=== PATIENT | female | born 1935 | race Caucasian/White ===

== ENCOUNTER 2016-05-14 14:26 | Observation (INO) ==
--- NOTE | 2016-05-14 15:37 | Emergency Department Note ---
Disposition Clinical Impression: Transient ischemic attack (TIA) Qualifiers: Transient cerebral ischemia type: unspecified Qualified Code(s): G45.9 - Transient cerebral ischemic attack, unspecified Disposition: Admitted As Inpatient Condition: Good Time of Disposition: 16:15 Arrhythmia/Palpitations HPI - General Chief Complaint: ED Arrhythmia/Palpitations Stated Complaint: arrhythmia Time Seen by Provider: 05/14/16 14:30 Source: patient, EMS Limitations: no limitations Nursing Notes Reviewed: Yes Vital Signs Reviewed: Yes - History of Present Illness HPI Narrative: Mrs. Christopher, a 80-year-old female, presents from Dr. Jalloh' office via EMS with reported new onset arrhythmia with ST changes. At 10:30 this morning. Patient experienced right-sided upper and lower extremity weakness and numbness. She went to her primary care physician's office without appointment. He performed an EKG which which showed bigeminy. Patient has no history of bigeminy. Patient's only complaint at this time is generalized weakness. - Related Data Home Medications Medication Instructions Recorded Confirmed Ascorbate Calcium [Vitamin C] 500 mg PO DAILY 05/14/16 05/14/16 Aspirin 325 mg PO DAILY 05/14/16 05/14/16 Atorvastatin [Lipitor] 40 mg PO HS 05/14/16 05/14/16 Cholecalciferol (D-3) [Vitamin D] 1,000 unit PO DAILY 05/14/16 05/14/16 Lisinopril [Zestril] 10 mg PO DAILY 05/14/16 05/14/16 Metoprolol Succinate 100 mg PO DAILY 05/14/16 05/14/16 Allergies Allergy/AdvReac Type Severity Reaction Status Date / Time No Known Allergies Allergy Verified 05/14/16 14:58 All systems ED: reviewed and negative except as stated. Constitutional: Reports: weakness. Denies: fever, chills Eyes: Denies: vision change ENT ED: Denies: congestion Cardiovascular: Denies: chest pain, palpitations, dyspnea on exertion, syncope Respiratory: Denies: cough, dyspnea, wheezes, hemoptysis Gastrointestinal: Denies: abdominal pain, nausea, vomiting, diarrhea, constipation, hematemesis, melena, hematochezia Genitourinary: Denies: urgency, dysuria, frequency Musculoskeletal: Denies: back pain, neck pain Integumentary: Denies: rash Neurological: Reports: weakness, numbness. Denies: headache, confusion, abnormal gait, vertigo Past Medical History - Past Medical History Medical history: Reports: coronary artery disease, hyperlipidemia, hypertension , myocardial infarction, other Psychiatric history: Reports: no psych history - Social History Smoking Status: Never smoker Smokeless Tobacco Status: No Alcohol use: Reports: none Drug use: Reports: none Physical Exam General: Patient is alert, oriented, and in no acute distress. HEENT: No facial asymmetry. Head is normocephalic and atraumatic. PERRLA, EOMI. trachea midline. Oral mucosa moist. Cardiovascular: Heart bradycardic rate and irregular rhythm without clicks, rubs , gallops, or murmurs. No JVD. PMI nondisplaced. No pedal edema. Bilateral radial, dorsalis pedis, posterior tibial pulses 2+. Respiratory: Symmetric chest rise with good respiratory effort. Bilateral breath sounds are clear without wheezing, crackles, or rhonchi. Abdomen: Bowel sounds present normoactive x-4 quadrants. Abdomen is soft, nondistended, and nontender. No organomegaly noted. Musculoskeletal: Muscle strength 5/5 and symmetric bilaterally in upper and lower extremities. DTRs 2/4 and symmetric bilaterally in upper and lower extremities. Neuro: Cranial nerves II through XII without deficit. Sensation light touch intact. Negative pronator drift. Psych: Patient's affect is appropriate for situation. - General Limitations: no limitations General appearance: alert, in no apparent distress Course Course Narrative: Initial concern is patient had transient neurologic symptoms with the addition of a cardiac arrhythmia of unknown duration. It is possible she could have formed a clot which are arrhythmia and ejected it into the arterial side. Patient is neurologically asymptomatic at this time. EKG interpreted as bigeminy however, when speaking with patient at bedside, she will spontaneously convert to normal sinus then slide back in a bigeminy. Unknown duration of this rhythm. Patient's lab work is unremarkable. Patient imaging does not show any acute abnormalities. Head CT 05/14/16 14:50 IMPRESSION: No acute intracranial abnormality. D/ / Davi Gore MD / Davi Gore MD Interpreting Provider: Davi Gore MD After speaking with the patient and her family at bedside, they agreed to admission for TIA workup as well as continued cardiac evaluation. Spoke with Dr. Alonzo who agrees to accept the patient. Vital Signs Temperature 98.4 F 05/14/16 14:27 Pulse Rate 82 05/14/16 14:27 Respiratory Rate 18 05/14/16 14:27 Blood Pressure 169/86 05/14/16 14:27 O2 Sat by Pulse Oximetry 97 05/14/16 14:27 Temperature 98.4 F 05/14/16 14:27 Pulse Rate 85 05/14/16 17:13 Respiratory Rate 16 05/14/16 17:19 Blood Pressure 174/86 05/14/16 17:19 O2 Sat by Pulse Oximetry 95 05/14/16 17:13 Oxygen Delivery Oxygen Delivery Room Air Arrhythmia/Palpitations - Medical Records Medical records reviewed: Yes I reviewed the patient's medical records. Patient has no medical record cardiac and neurologic workup on file. Head CT 05/14/16 14:50 IMPRESSION: No acute intracranial abnormality. D/ / Davi Gore MD / Davi Gore MD Interpreting Provider: Davi Gore MD - Lab Data Lab results reviewed: Yes I reviewed the patient's lab results. Result diagrams: 05/14/16 15:35 05/14/16 15:35 Lab Results 05/14/16 05/14/16 05/14/16 Range/Units 15:35 15:35 15:35 WBC 7.7 (4.3-11.1) K/mcL RBC 4.67 (3.82-4.97) M/mcL Hgb 14.6 (11.5-15.4) g/dL Hct 43.5 (35.3-44.9) % MCV 93.1 (83.0-100.0) fL MCH 31.3 (28.0-33.3) pg MCHC 33.6 (31.6-35.5) g/dL RDW 13.2 (11.5-14.5) % Plt Count 212 (140-400) K/mcL MPV 11.1 (9.4-12.4) fL Immature Gran % 0.3 (0-4) % Seg Neutrophils % 60.8 % Lymphocytes % 26.9 % Monocytes % 8.1 % Eosinophils % 3.0 % Basophils % 0.9 % Neutrophils # 4.7 (1.6-8.9) K/mcL Lymphocytes # 2.1 (0.6-4.6) K/mcL Monocytes # 0.6 (0.0-1.3) K/mcL Eosinophils # 0.2 (0.0-0.6) K/mcL Basophils # 0.1 (0.0-0.2) K/mcL PT 12.9 H (9.4-12.1) Seconds INR 1.2 Sodium 142 (136-145) mEq/L Potassium 3.9 (3.5-4.5) mEq/L Chloride 106 (98-109) mEq/L Carbon Dioxide 27 (19-29) mEq/L BUN 27 H (7-20) mg/dL Creatinine 0.84 (0.57-1.11) mg/dL Est GFR ( Amer) > 60 (> 60) Est GFR (Non-Af Amer) > 60 (> 60) BUN/Creatinine Ratio 32 H (6-26) Glucose 90 (70-99) mg/dL Calculated Osmolality 299 (280-300) Calcium 9.5 (8.6-10.8) mg/dL Troponin I (0-0.03) ng/mL 05/14/16 Range/Units 15:35 WBC (4.3-11.1) K/mcL RBC (3.82-4.97) M/mcL Hgb (11.5-15.4) g/dL Hct (35.3-44.9) % MCV (83.0-100.0) fL MCH (28.0-33.3) pg MCHC (31.6-35.5) g/dL RDW (11.5-14.5) % Plt Count (140-400) K/mcL MPV (9.4-12.4) fL Immature Gran % (0-4) % Seg Neutrophils % % Lymphocytes % % Monocytes % % Eosinophils % % Basophils % % Neutrophils # (1.6-8.9) K/mcL Lymphocytes # (0.6-4.6) K/mcL Monocytes # (0.0-1.3) K/mcL Eosinophils # (0.0-0.6) K/mcL Basophils # (0.0-0.2) K/mcL PT (9.4-12.1) Seconds INR Sodium (136-145) mEq/L Potassium (3.5-4.5) mEq/L Chloride (98-109) mEq/L Carbon Dioxide (19-29) mEq/L BUN (7-20) mg/dL Creatinine (0.57-1.11) mg/dL Est GFR ( Amer) (> 60) Est GFR (Non-Af Amer) (> 60) BUN/Creatinine Ratio (6-26) Glucose (70-99) mg/dL Calculated Osmolality (280-300) Calcium (8.6-10.8) mg/dL Troponin I 0.01 (0-0.03) ng/mL - Radiology Data Radiology results reviewed: Yes I reviewed the patient's radiology results. Head CT 05/14/16 14:50 IMPRESSION: No acute intracranial abnormality. D/ / Davi Gore MD / Davi Gore MD Interpreting Provider: Davi Gore MD - EKG Data EKG attestation: Yes I reviewed and interpreted this EKG. EKG results narrative: EKG dated 05/14/16 at 14:36 interpreted as premature atrial beats presenting as bigeminy. Nonspecific ST-T changes however no evidence of ST elevation. Compared to previous dated 05/14/2016 at 13:41 all showing bigeminy. Compared to previous dated 10/15/1997 showing sinus rhythm. In comparison, the bigeminy is new. Attestation Statement - Attestation Attestation: Dr. Starr note: Is not seen in conjunction with resident Dr Alonso; please see his charting for complete documentation. I agree with the patient's treatment and disposition and treatment [id number] time with the patient. TRansient rt sided weakness today; no focal deficits on re examination @ this time; bigimeny noted on ekg and has been going on for ? amt of time; intermittent nsr also noted in ER; very pleasant/comfortable in ER w/o acute findings; NIH Stroke Scale - Level of Consciousness LOC: Alert - LOC Questions LOC Questions: Answers both correctly - LOC Commands LOC Commands: Performs both correctly - Best Gaze Best Gaze: Normal - Visual Visual: No visual loss - Facial Palsy Facial Palsy: Normal - Motor Arms Motor Arm-Left: No drift for 10 seconds Motor Arm-Right: No drift for 10 seconds - Motor Legs Motor Leg-Left: No drift for 5 seconds Motor Leg-Right: No drift for 5 seconds - Limb Ataxia Limb Ataxia: Normal, No Ataxia - Sensory Sensory: Normal - Best Language Best Language: No aphasia - Dysarthria Dysarthria: Normal - Extinction and Inattention Extinction and Inattention: Normal - NIHSS Total Score NIHSS Total Score: 0 TPA Checklist - Source Information Source: Patient - Eligibilty for IV tPA 1. LKW equal to or less than 4.5 hours be before treatment: No 2. Clinical diagnosis of ischemic stroke causing deficit: No 3. Age 18 years or older: Yes
[2016-05-14 15:44] LABS: Basophils # 0.1 K/mcL (0.0-0.2); Basophils % 0.9 %; Eosinophils # 0.2 K/mcL (0.0-0.6); Hematocrit 43.5 % (35.3-44.9); Hemoglobin 14.6 g/dL (11.5-15.4); Immature Granulocytes % 0.3 % (0-4); Lymphocytes # 2.1 K/mcL (0.6-4.6); Lymphocytes % 26.9 %; Mean Corpuscular HGB Conc 33.6 g/dL (31.6-35.5); Mean Corpuscular Hemoglobin 31.3 pg (28.0-33.3); Mean Corpuscular Volume 93.1 fL (83.0-100.0); Mean Platelet Volume 11.1 fL (9.4-12.4); Monocytes # 0.6 K/mcL (0.0-1.3); Monocytes % 8.1 %; Neutrophils # 4.7 K/mcL (1.6-8.9); Platelet Count 212 K/mcL (140-400); Red Blood Count 4.67 M/mcL (3.82-4.97); Red Cell Distribution Width 13.2 % (11.5-14.5); Segmented Neutrophils % 60.8 %
[2016-05-14 15:50] LABS: INR 1.2; Prothrombin Time 12.9 Seconds (9.4-12.1)
[2016-05-14 15:55] LABS: BUN/Creatinine Ratio 32 (6-26); Blood Urea Nitrogen 27 mg/dL (7-20); Calcium 9.5 mg/dL (8.6-10.8); Carbon Dioxide 27 mEq/L (19-29); Chloride 106 mEq/L (98-109); Glucose 90 mg/dL (70-99); Osmolality,Calculated 299 (280-300); Potassium 3.9 mEq/L (3.5-4.5); Sodium 142 mEq/L (136-145); eGFR For African Americans > 60 (> 60); eGFR For Non-African Americans > 60 (> 60)
[2016-05-14] MEDS ORDERED: Acetaminophen 325 MG TABLET PO PRN (17:29)
[2016-05-14] MEDS ORDERED: Ondansetron ODT 4 MG TAB.RAPDIS SL PRN (17:29)
[2016-05-14] MEDS ORDERED: Naloxone 0.4 MG/ML INJ IVP PRN (17:29)
[2016-05-14] MEDS ORDERED: Ibuprofen 400 MG TABLET PO PRN (17:29)
[2016-05-14] MEDS ORDERED: *HR* Morphine 2 MG/ML SYRINGE IVP PRN (17:29)
--- NOTE | 2016-05-14 17:59 | Internal Med History&Physical ---
Date of Encounter: 05/14/16 Time of Encounter: 17:52 Assessment and Plan (1) Transient ischemic attack (TIA) Current visit: Yes Status: Acute Obtain TIA work up: Brain MRI, ECHO, and Carotid Doppler. Patient already on ASA and Lipitor at home, continue home meds. BP ranges from 156-169/86-111. Hold off on home BP meds till Brain MRI rules out acute infarct. Hydralazine 10mg IVP ordered prn SBP/DBP. >180/110. Rpt EKG a.m, keep on telemetry Neuro consult if any abnormality. Qualifiers: Transient cerebral ischemia type: unspecified Qualified Code(s): G45.9 - Transient cerebral ischemic attack, unspecified (2) Bigeminy Current visit: Yes Status: Acute (3) HTN (hypertension) Current visit: Yes Status: Chronic Qualifiers: Hypertension type: essential hypertension Qualified Code(s): I10 - Essential (primary) hypertension (4) CAD (coronary artery disease) Current visit: Yes Status: Chronic Qualifiers: Coronary Disease-Associated Artery/Lesion type: [place] artery [place] vs. transplanted heart: [place] heart Associated angina: without angina Qualified Code(s): I25.10 - Atherosclerotic heart disease of [place] coronary artery without angina pectoris (5) HLD (hyperlipidemia) Current visit: Yes Status: Chronic Qualifiers: Hyperlipidemia type: unspecified Qualified Code(s): E78.5 - Hyperlipidemia , unspecified Internal Medicine - H&P: HPI Chief complaint: RUE and RLE weakness Admitted From: Home Plans for Post Hospital Care: Home History of present illness: 80 Y/O F with PMH of CAD/[place], HLD, HTN Presented as a referral from PCPs office for evaluation for abnormal EKG and RUE and RLE weakness. She reports being in her usual state of health till 0900 today when she felt weak on her upper and lower extremity. She denies numbness, speech problems or facial assymetry at that time. She presented to her PCP who referred her to the ER by squad due to an abnormal EKG Patient denies chest pain, palpitations, syncope, fainting episodes, shortness of breath , orthopnea, PND, She denies or abdominal symptoms At time of review, she is completely asymptomatic At baseline, patient is functional and able to care for her horses and dogs at home. PMH: HTN, HLD, CAD with hx of TN several years ago >20 years ago, she is not sure if she had stents placed or not. She is a never-smoker. Past Med Surg Social Fam HX - Past Medical History Medical history: coronary artery disease, hyperlipidemia, hypertension, myocardial infarction, other Psychiatric history: no psych history - Social History Smoking Status: Never smoker Smokeless Tobacco Status: No Alcohol use: none Drug use: none Internal Medicine - H&P: Meds Ascorbate Calcium [Vitamin C] 500 mg PO DAILY 05/14/16 [History] Aspirin 325 mg PO DAILY 05/14/16 [History] Atorvastatin [Lipitor] 40 mg PO HS 05/14/16 [History] Cholecalciferol (D-3) [Vitamin D] 1,000 unit PO DAILY 05/14/16 [History] Lisinopril [Zestril] 10 mg PO DAILY 05/14/16 [History] Metoprolol Succinate 100 mg PO DAILY 05/14/16 [History] Allergies No Known Allergies Allergy (Verified 05/14/16 14:58) All Systems PM: A 10-system review of systems was performed and is negative for pertinent findings except as documented above in the HPI. - Constitutional Constitutional: no chills, no fever(s), no night sweats - EENT Eyes: no change in vision, no discharge, no pain, no photophobia Ears: no ear discharge, no ear pain, no tinnitus Nose, mouth and throat: no dysphagia, no nasal discharge, no neck pain, no sore throat - Cardiovascular Cardiovascular ROS IM: no chest pain, no diaphoresis, no dyspnea, no lightheadedness, no palpitations, no syncope - Respiratory Respiratory: no cough, no dyspnea, no wheezing, no excessive phlegm production - Gastrointestinal Gastrointestinal: no abdominal pain, no diarrhea, no hematemesis, no hematochezia, no melena, no nausea, no vomiting - Genitourinary Genitourinary: no change in urinary stream, no dysuria, no flank pain, no hematuria - Integumentary Additional comments: Multiple moles - Neurological Neurological ROS: as per HPI - Psychiatric Psychiatric: no depression - Hematologic/Lymphatic Hematologic/Lymphatic: no easy bruising - Constitutional Vitals: Temp Pulse Resp BP Pulse Ox 98.4 F 85 16 174/86 95 05/14/16 14:27 05/14/16 17:13 05/14/16 17:19 05/14/16 17:19 05/14/16 17:13 Exam General: Elderly female, frail, No apparent distress Neuro: AAOX3, Normal gait, No facial asymmetry, no speech deficits, no sensation abnormalities, reflexes normal. HEENT: Moist oral mucosa, normal neck inspection, no facial asymmetry Cardiovascular: S1, S2, RRR, Bradycardic, no g/m/r, JVD normal Respiratory: CTAB, no added sounds Abdomen: Soft, not tender, no palpably enlarged organs, normal bowel sounds Skin: Multiple moles, worse on the back, patient reports these are chronic Extremities: No edema Psych: Normal mood Internal Med - H&P Results - Labs CBC & Chem 7: 05/14/16 15:35 05/14/16 15:35 Labs: Labs and Imaging reviewed CBC, Chem, Coag panel unremarkable EKG: Bigeminy, LAE, No ST segment changes, compared to previous EKGs normal EKG in 1997, no other EKGs to compare with Head CT: Chronic microvascular changes, no acute abnormality
[2016-05-14 23:26] LABS: Bilirubin,Urine Negative (Negative); Blood,Urine Small (Negative); Color,Urine Yellow (Yellow); Glucose,Urine (UA) Normal (Normal); Ketones,Urine Negative (Negative); Leukocyte Esterase,Urine Large (Negative); Nitrite,Urine Negative (Negative); Protein,Urine Negative (Neg-Trace); Specific Gravity,Urine 1.019 (1.010-1.025); Urobilinogen,Urine Normal (Normal)
[2016-05-14 23:27] LABS: Bacteria,Urine None Seen per hpf (None-Few); Hyaline Casts,Urine None Seen per lpf (None-Few); Squamous Epithelial Cell,Urine Moderate per lpf (None-Few); WBC,Urine TNTC per hpf (0-3)
[2016-05-14 23:28] LABS: Clarity,Urine Hazy (Clear)
[2016-05-15 05:03] LABS: Chol/HDL Ratio 3.9 (0-4.9)
[2016-05-15] MEDS: Cholecalciferol (D-3) 1,000 UNIT TABLET PO SCH (08:12)
[2016-05-15] MEDS: Ascorbic Acid 500 MG TABLET PO SCH (08:12)
[2016-05-15] MEDS: Aspirin 325 MG TABLET PO SCH (08:12)
--- NOTE | 2016-05-15 12:55 | ECHO - Doppler Report ---
Echo with Saline Contrast Name: Judith Chrisotpher Date of Study: 05/15/2016 Date: 1935 Ht: 63.0 in Medical Record#: [id number] Age: 80 Wt: 91.0 lb Gender: Female BSA: 1.38 Order #: [id number] Location: [facility] Room #: 3B13 Reading Physician: Matt Oro DO, WENCESLAO, REBECCA ASKEW Human Resources Compliance Manager: David House RN Ordering Physician: Shahid Little MD Primary Physician: Noam Chun MD Indications: Transient Ischemic Attack Impressions: LVEF 45%. Normal LV chamber size and wall thickness. Mild segmental left ventricular systolic dysfunction. Mild left ventricular diastolic dysfunction. Atypical septal motion consistent with bundle branch block. Normal right ventricular structure and function. Severely dilated left atrium. Mild aortic regurgitation. Mild-moderate mitral regurgitation. Mild pulmonary hypertension. Estimated RVSP is 37 mmHg. There is a trivial pericardial effusion present. Small PFO suggested with a left to right shunt with color Doppler. Agitated saline study negative for right to left shunt. Left Ventricular Wall Motion: Rest Echo Findings The apical inferior, mid inferior and basal inferior wright were hypokinetic. All other wall segments showed normal motion. Findings: Study Quality * Technically adequate exam. ECG Findings * Sinus rhythm with PVCs. Left Ventricle * LVEF 45%. * Normal LV chamber size and wall thickness. * Mild segmental left ventricular systolic dysfunction. * Mild left ventricular diastolic dysfunction. * Atypical septal motion consistent with bundle branch block. Right Ventricle * Normal right ventricular structure and function. Left Atrium * Severely dilated left atrium. Right Atrium * Mildly dilated right atrium. Interatrial Septum * Small PFO suggested with a left to right shunt with color Doppler. Agitated saline study negative for right to left shunt. Aortic Valve * Trileaflet aortic valve. * Mildly sclerotic aortic valve leaflets. * Mild aortic regurgitation. * No aortic stenosis. Mitral Valve * Mildly thickened mitral valve leaflets. * Mild-moderate mitral regurgitation. * No mitral stenosis. Tricuspid Valve * Normal tricuspid valve structure. * Trace tricuspid regurgitation. * Mild pulmonary hypertension. * Estimated RVSP is 37 mmHg. * Estimated RA pressure is 5 mmHg. Pulmonic Valve * Normal pulmonic valve structure. * Mild pulmonic regurgitation. Aorta * Normally sized aortic root. Pericardium * There is a trivial pericardial effusion present. IVC * Normal IVC dimensions and inspiratory collapse. Pulmonary Artery * Normal visualized portions of the main pulmonary artery. History Hypertension Family History of CAD History of CAD/PTCA Myocardial Infarction Contrast: Agitated saline 20 ml. Measurements: BP: 136/ 77 2D Normal Values RVIDd: 3.50 cm <2.7 cm IVSd: 1.00 cm 0.6 - 1.0 cm LVIDd: 5.30 cm 3.7 - 5.6 cm LVPWd: 1.00 cm 0.6 - 1.1 cm LVIDs: 3.90 cm 1.5 - 3.6 cm LA: 4.50 cm 2.0 - 4.0cm %FS: 26.40 cm >25 % LVOT Diam: 2.00 cm LA volume: 129 Mitral Valve Peak E:1.07 m/sec Peak A:.64 m/sec E/A Ratio:1.7 Peak E' Lat Bandar:6.24 cm/s Peak E' Med Band[place]:4.39 cm/s E/E' Lat Ratio:17.1 E/E' Med Ratio:24.4 Aortic Valve AI pressure Half-time: 353.00 msec Tricuspid Valve TV Regurg Peak Grad: 32.00mmHg TV Regurg Peak Bandar: 2.84m/sec Updated by Matt Oro DO, FACYossi, REBECCA ASKEW on 05/15/2016 12:47:30 PM electronically signed on 05/15/2016 12:49:44 PM with status of Final Wall Motion [place]: 1=Normal, 2=Hypokinesis, 3=Akinesis, 4=Dyskinesis, 5=Aneurysmal, 6=Hyperkinetic, X=Not Visualized (Blank)=Missing
--- NOTE | 2016-05-15 13:42 | Internal Med Progress Note ---
Date of Encounter: 05/15/16 Time of Encounter: 13:39 - Assessment and plan (1) Transient ischemic attack (TIA) Current Visit: Yes Status: Acute Assessment and plan: Patient with RUE and RLE weakness several hours prior to presentation Head CT and Brin MRI with chronic microvascular changes Patient with multiple risk factors including CAD, HTN, HLD EKG on admission with bigeminy Repeated today with PVCs, Bigeminy, ECHO report this pm shows LVEF of 45%, N LV chmaber size, Mild LVSD, MIld LVDD, BBB, Severely dilated LA< PFO, Hypokinetic apical, inferior, basal inferior wright, Trivial pericardial effusion Patient has no chest pain and no current evidence of congestion Patient is already on ASA, Lipitor, BB, ACEI, continue same Consult cardiology and Neurology Continue telemetry Qualifiers: Transient cerebral ischemia type: unspecified Qualified Code(s): G45.9 - Transient cerebral ischemic attack, unspecified (2) CHF (congestive heart failure) Current Visit: Yes Status: Chronic Assessment and plan: BY ECHO LVEF 45% Mgt as above Qualifiers: Congestive heart failure type: combined Congestive heart failure chronicity : chronic Qualified Code(s): I50.42 - Chronic combined systolic (congestive) and diastolic (congestive) heart failure (3) Bigeminy Current Visit: Yes Status: Acute Assessment and plan: ECHO noted for several abnormalities Consult cardiology given all these findings and TIA (4) HTN (hypertension) Current Visit: Yes Status: Chronic Assessment and plan: As above Qualifiers: Hypertension type: essential hypertension Qualified Code(s): I10 - Essential (primary) hypertension (5) CAD (coronary artery disease) Current Visit: Yes Status: Chronic Assessment and plan: As above Qualifiers: Coronary Disease-Associated Artery/Lesion type: [place] artery [place] vs. transplanted heart: [place] heart Associated angina: without angina Qualified Code(s): I25.10 - Atherosclerotic heart disease of [place] coronary artery without angina pectoris (6) HLD (hyperlipidemia) Current Visit: Yes Status: Chronic Assessment and plan: As above Qualifiers: Hyperlipidemia type: unspecified Qualified Code(s): E78.5 - Hyperlipidemia , unspecified (7) PFO (patent foramen ovale) Current Visit: Yes Status: Chronic Assessment and plan: Cardio consult - Subjective Interval history: 80 Y/O F with PMH of CAD/[place], HLD, HTN Presented as a referral from PCPs office for evaluation for abnormal EKG and RUE and RLE weakness. She was admitted for TIA work up She is seen at bedside this morning, no new complains - Constitutional Vitals: Temp Pulse Resp BP Pulse Ox 97.8 F 78 14 133/82 97 05/15/16 11:13 05/15/16 11:13 05/15/16 11:13 05/15/16 11:13 05/15/16 11:13 General appearance: Present: cooperative, A&O X 3, pleasant, no acute distress, underweight - Head Head exam: Present: atraumatic - Eye Eye exam: Present: PERRL, conjuntiva pink, sclera anicteric - ENT ENT exam: Present: mucous membranes moist - Neck Neck exam general surgery: Present: normal inspection, supple Additional comments: No JVD, No carotid bruits - Respiratory Respiratory exam: Present: CTAB. Absent: accessory muscle use, rales, rhonchi, wheezes - Cardiovascular Cardiovascular exam: Present: irregular rhythm (Regularly irregular), RRR, +S1, +S2. Absent: diastolic murmur, gallop, rubs, systolic murmur - GI/Abdominal GI/Abdominal exam: Present: normal bowel sounds, soft, no peritoneal signs. Absent: distended, tenderness - Extremities Exam Extremities exam: Present: warm, radial pulses palpable and symetrical. Absent : calf tenderness, cyanotic, pedal edema - Neurological Exam Neurological exam: Present: CN II-XII intact, normal gait, oriented X3, no focal deficits, strengths equal and symetr throughout. Absent: pronater drift, facial droop, speech deficit - Skin Skin exam: Present: dry, intact Internal Medicine: Result - Labs CBC & Chem 7: 05/14/16 15:35 05/14/16 15:35 Labs: Urine 05/14/16 Range/Units 23:05 Urine Color Yellow (Yellow) Urine Clarity Hazy A (Clear) Urine pH 6.0 (5.0-8.0) pH Units Ur Specific [place] 1.019 (1.010-1.025) Urine Protein Negative (Neg-Trace) mg/dL Urine Glucose (UA) Normal (Normal) mg/dL - ABG Interpretation ABG results: PT/INR, D-dimer PT 12.9 Seconds (9.4-12.1) H 05/14/16 15:35 - Impressions Impressions Brain MRI 05/14/16 17:35 IMPRESSION: 1. No acute intracranial abnormality. 2. Moderate chronic white matter microvascular ischemic changes. D/ / Justin Madera MD / Justin Madera MD Interpreting Provider: Justin Madera MD Consult Discharge Plan - Plan Referrals: Noam Chun MD [Primary Care Provider] -
--- NOTE | 2016-05-15 14:16 | Cardiology Consult Note ---
<Neville Medina - Last Filed: 05/15/16 14:12> Date of Encounter: 05/15/16 Time of Encounter: 14:12 Assessment and Plan (1) Transient ischemic attack (TIA) Current Visit: Yes Status: Acute Symptoms resolved. MRI negative. Qualifiers: Transient cerebral ischemia type: unspecified Qualified Code(s): G45.9 - Transient cerebral ischemic attack, unspecified (2) Bigeminy Current Visit: Yes Status: Acute Noted on EKG without symptoms. No recommendation for rhythm at this time. Unlikely the cause for patient's symptoms. We will have patient follow-up outpatient in clinic. Appointment has been requested. (3) CHF (congestive heart failure) Current Visit: Yes Status: Chronic EF of 45% on Echo. Previous EF 49% on stress. Patient on beta silas and ELLEN-I. Follow-up in cardiology clinic outpatient. Qualifiers: Congestive heart failure type: combined Congestive heart failure chronicity : chronic Qualified Code(s): I50.42 - Chronic combined systolic (congestive) and diastolic (congestive) heart failure (4) HTN (hypertension) Current Visit: Yes Status: Chronic Qualifiers: Hypertension type: essential hypertension Qualified Code(s): I10 - Essential (primary) hypertension (5) CAD (coronary artery disease) Current Visit: Yes Status: Chronic Qualifiers: Coronary Disease-Associated Artery/Lesion type: [place] artery [place] vs. transplanted heart: [place] heart Associated angina: without angina Qualified Code(s): I25.10 - Atherosclerotic heart disease of [place] coronary artery without angina pectoris (6) HLD (hyperlipidemia) Current Visit: Yes Status: Chronic Qualifiers: Hyperlipidemia type: unspecified Qualified Code(s): E78.5 - Hyperlipidemia , unspecified (7) PFO (patent foramen ovale) Current Visit: Yes Status: Chronic Discussion w patient/family: The assessment and plan as outlined above was discussed with the patient and/or family members who expressed understanding and agreement. All questions were answered. Thank you for involving us in the care of your patient. Please call with any questions. History of Present Illness Consult date: 05/15/16 Requesting physician: Shahid Little Consult reason: Bigeminy Chief complaint: RLE Paraesthesias History of present illness: Ms. Christopher is a 80 year old female who presented to [facility] ED complaining of RLE weakness yesterday. She was found to have TIA as her MRI is negative for acute process. No other complaints. She has no complaints of chest pain, new dyspnea , swelling. The patient does state she does have intermittent dyspnea but denies any constant or worsening symptoms. The patient had an echo during this hospital visit with an EF of 45% without ischemia that is reversible. She was noted to have a stress test a few years ago with an EF of 49%. She is on Beta silas and ELLEN-I already. No other complaints. Past Med Surg Social Fam HX - Past Medical History Attestation: Yes The following information was validated with the patient. Source: patient, old records reviewed Medical history: coronary artery disease, hyperlipidemia, hypertension, myocardial infarction, other Psychiatric history: no psych history - Social History Smoking Status: Never smoker Smokeless Tobacco Status: No Alcohol use: none Drug use: none - Family History Father Living Status: Hx Family Cancer: Yes (lung) Mother Hx Family Cardiac Disorders: Yes Medications and Allergies Ascorbate Calcium [Vitamin C] 500 mg PO DAILY 05/14/16 [History] Aspirin 325 mg PO DAILY 05/14/16 [History] Atorvastatin [Lipitor] 40 mg PO HS 05/14/16 [History] Cholecalciferol (D-3) [Vitamin D] 1,000 unit PO DAILY 05/14/16 [History] Lisinopril [Zestril] 10 mg PO DAILY 05/14/16 [History] Metoprolol Succinate 100 mg PO DAILY 05/14/16 [History] Allergies No Known Allergies Allergy (Verified 05/14/16 14:58) All Systems Review: A 10-system review of systems was performed and is negative for pertinent findings except as documented above in the HPI. Physical Examination Vital Signs, Last 4 Hours Temp Pulse Resp BP Pulse Ox 05/15/16 11:13 97.8 F 78 14 133/82 97 General: Conversant, No Apparent Distress HEENT: Atraumatic, Normocephaly, Mucus Membranes Moist Neck: No JVD, Normal carotid pulses Cardiac: Reg Rate and Rhythm, Normal S1 and S2, No Murmur Lungs: Normal Breath Sounds, No Wheeze, Rales, Rhonchi Neuro: Alert and responsive, No focal deficits noted Abdomen: Soft, Non-Tender Skin: No rashes noted on visualized skin Musculoskeletal: No Chest Wall Tenderness Extremities: No Clubbing, No Cyanosis, No Edema, Normal Pulses Results 05/14/16 15:35 05/14/16 15:35 - Imaging and Cardiology Echo: report reviewed - EKG Interpretation EKG results cardiology: personally reviewed, no diagnostic ischemia, other ( Noted bigeminy) Consult Discharge Plan - Plan Referrals: Noam Chun MD [Primary Care Provider] - - Attending Attestation I examined this patient and my medical decision-making was reviewed with the Resident Physician. I agree with the documented findings, disposition and treatment plan as described except to the extent set forth below. <Mike Morales G - Last Filed: 05/15/16 14:30> Date of Encounter: 05/15/16 Assessment and Plan Discussion w patient/family: The assessment and plan as outlined above was discussed with the patient and/or family members who expressed understanding and agreement. All questions were answered. Thank you for involving us in the care of your patient. Please call with any questions. History of Present Illness History of present illness: Ms. Christopher is a 80 year old female All Systems Review: A 10-system review of systems was performed and is negative for pertinent findings except as documented above in the HPI. Physical Examination Vital Signs, Last 4 Hours Temp Pulse Resp BP Pulse Ox 05/15/16 11:13 97.8 F 78 14 133/82 97 Results 05/14/16 15:35 05/14/16 15:35 - Attending Attestation I examined this patient and my medical decision-making was reviewed with the BARREL LINE OPERATOR/PA/Advanced Practice Nurse/Resident Physician. I agree with the documented findings, disposition and treatment plan as described except to the extent set forth below. Asked to see pt admitted for TIA, for bijeminy no cp , sob, dizziness. EF 45% GXT no ischemia possible old infarct VSS JVD: 6-7 cm Chest : clear CVS RRR EKG: NSR with ventricular bijeminy plan; cont present rx no treatment for bijeminy f/up with cardiology as an op ? try Amio as an op to suppress PVCs , maybe causing cardiomyopathy ? PVC ablation Thanks !
--- NOTE | 2016-05-15 15:30 | Neurology - Consult Note ---
Date of Encounter: 05/15/16 Time of Encounter: 15:25 Assessment and Plan (1) Transient ischemic attack (TIA) Current Visit: Yes Status: Acute Patient is a 80 year old elderly, every functional female with CAD, hyperlipidemia who developed transient right leg weakness, with total resolution , no speech or right arm involvement but may be overlooked on presentation or may be leg weakness more than arm. No definitive history of atrial fibrillation. Does have CHF with LVEF 45%. Small PFO of unknown clinically significance. Currently see no strong indication for more aggressive therapy other than antiplatelet therapy. Would be benefit from rhythm monitoring such as prolonged Holter monitoring or Loop recording. continue aspirin 325mg daily and statin therapy. Await carotid artery duplex study. Qualifiers: Transient cerebral ischemia type: unspecified Qualified Code(s): G45.9 - Transient cerebral ischemic attack, unspecified History of Present Illness Chief complaint: right leg weakness HPI: Ms. Christopher is a 80 year old female with PMH significant for CAD, chronic pain who developed one episode of right leg weakness lasting 10-20 minutes concerning for TIA. Patient says that in the morning she woke up feeling right side of body different and when she stood up to walk she found her weak to the right leg. She was focusing to the right leg and did not notice whether she was also weak to her right arm. She says that he speech was normal and that she was able to communicate to her relatives at home. She admits some palpitations. She says that [place] and no longer able to carry heavy stuffs around anymore. MRI of brain showed no acute intracranial abnormality. Echocardiography with saline bubble showed small PFO. LVEF 45%, no other significant valvular diseases reported No history of atrial fibrillation. Has been taking aspirin daily in the past but admits that she has not been taking aspirin for a week Past Med Surg Social Fam HX - Past Medical History Medical history: coronary artery disease, hyperlipidemia, hypertension, myocardial infarction, other Psychiatric history: no psych history - Social History Smoking Status: Never smoker Smokeless Tobacco Status: No Alcohol use: none Drug use: none - Family History Father Living Status: Hx Family Cancer: Yes (lung) Mother Hx Family Cardiac Disorders: Yes Medications and Allergies Ascorbate Calcium [Vitamin C] 500 mg PO DAILY 05/14/16 [History] Aspirin 325 mg PO DAILY 05/14/16 [History] Atorvastatin [Lipitor] 40 mg PO HS 05/14/16 [History] Cholecalciferol (D-3) [Vitamin D] 1,000 unit PO DAILY 05/14/16 [History] Lisinopril [Zestril] 10 mg PO DAILY 05/14/16 [History] Metoprolol Succinate 100 mg PO DAILY 05/14/16 [History] Allergies No Known Allergies Allergy (Verified 05/14/16 14:58) All Systems: A 10-system review of systems was performed and is negative for pertinent findings except as documented above in the HPI. Physical Examination - Vital Signs Vital Signs: Initial Vital Signs Temp Pulse Resp BP Pulse Ox 98.4 F 82 18 169/86 97 05/14/16 14:27 05/14/16 14:27 05/14/16 14:27 05/14/16 14:27 05/14/16 14:27 - Constitutional General appearance: comfortable - Neurologic Sensorimotor examination: intact Detailed motor examination: grossly full strength in all extremities Motor examination - right side: 5/5: deltoids, biceps, triceps, wrist flexion, wrist extension, delivery person, hip flexors, tibialis Anterior, quadriceps, toe extension (EHL), plantarflexion Motor examination - left side: 5/5: deltoids, biceps, triceps, wrist flexion, wrist extension, hip flexors, delivery person, quadriceps, tibialis Anterior, toe extension (EHL), plantarflexion Detailed sensory examination: intact Reflex and gait examination: intact Reflexes: Biceps: 1+, Triceps: 1+, Brachioradialis: 1+, Patella: 1+, Achilles: 1 + Mental Status Examination: awake, alert, oriented to person, oriented to place, oriented to time, follows commands appropriately, answers questions appropriately, no agnosia, no aphasia, no aproxia Cranial nerve examination: PERRL, EOMI, visual steele intact, corneal reflexes brisk symmetrically, sensory to face intact, mastication intact, no facial asymmetry is present, no dysarthria, hearing is intact symmetrically, soft palate elevates bilaterally upon phonation, gag reflex intact, flexes SCM and trapezius muscles symmetrically with full power, tongue protrudes midline, no atrophy or facial fasiculations present Results - Laboratory Findings CBC and BMP: 05/14/16 15:35 05/14/16 15:35 Abnormal lab findings: Abnormal lab results PT 12.9 Seconds (9.4-12.1) H 05/14/16 15:35 BUN 27 mg/dL (7-20) H 05/14/16 15:35 BUN/Creatinine Ratio 32 (6-26) H 05/14/16 15:35 LDL Cholesterol, Calc 116 mg/dL (0-99) H 05/15/16 03:27 Urine Clarity Hazy (Clear) A 05/14/16 23:05 Urine Blood Small (Negative) H 05/14/16 23:05 Ur Leukocyte Esterase Large (Negative) H 05/14/16 23:05 Urine Microscopic RBC 5-15 per hpf (0-3) H 05/14/16 23:05 Urine Microscopic WBC TNTC per hpf (0-3) H 05/14/16 23:05 Ur Squamous Epith Cells Moderate per lpf (None-Few) H 05/14/16 23:05 Consult Discharge Plan - Plan Referrals: Noam Chun MD [Primary Care Provider] -
--- NOTE | 2016-05-15 17:06 | Electrocardiograph Report ---
[address] [place] [address] Test Date: 2016-05-15 Pat Name: Judith Christopher Department: 113 Room: 3B13 Gender: F Ceramic Artist: : 1935 Requested By: Shahid Little Order Number: [id number] Reading MD: Siobhan Marshall Measurements Intervals [place] Rate: 75 P: ME: 0 QRS: 44 QRSD: 125 T: -52 QT: 400 QTc: 429 Interpretive Statements NORMAL SINUS RHYTHM with ventricular bigeminy MODERATE INTRAVENTRICULAR CONDUCTION DELAY ST DEVIATION AND MODERATE T-WAVE ABNORMALITY, CONSIDER INFERIOR ISCHEMIA Electronically Signed On 05-15-2016 17:04:24 EST by Siobhan Marshall
--- NOTE | 2016-05-15 17:17 | Electrocardiograph Report ---
[address] [place] [address] Test Date: 2016-05-14 Pat Name: Judith Christopher Department: 103 Room: 3B13 Gender: F Pediatric Surgeon: : 1935 Requested By: Rangel Starr Order Number: [id number] Reading MD: Siobhan Marshall Measurements Intervals [place] Rate: 82 P: RI: 0 QRS: 37 QRSD: 124 T: -28 QT: 374 QTc: 412 Interpretive Statements Normal sinus rhythm with ventricular bigeminy MODERATE INTRAVENTRICULAR CONDUCTION DELAY ST DEVIATION AND MODERATE T-WAVE ABNORMALITY, CONSIDER LATERAL ISCHEMIA ST DEVIATION AND MODERATE T-WAVE ABNORMALITY, CONSIDER INFERIOR ISCHEMIA Electronically Signed On 05-15-2016 17:16:11 EST by Siobhan Marshall
--- NOTE | 2016-05-15 19:18 | Carotid Imaging Report ---
Carotid Duplex Patient Name:Judith Christopher Order Number:[id number] Procedure Date:05/15/2016 Date:8Age:80 yrs Gender:Female Lt BP:140 / 70 mmHg Rt.BP:135 / 72 mmHgHeart Rate: Location:[facility] Room #: 13 Livestock Agent:David House RN Referring MD:Shahid Little MD grape pruner:Noam Chun MD Reading MD:Gilles Garner MD , FACS Primary Indications:Transient Ischemic Attack Risk Factors Yes/No Hypertension Yes Diabetes No Hypercholesterolemia No Smoker Previous No Hx of TIA No Hx of CVA No Anticoagulants No Hx of CAD/PTCA Yes Previous Vascular Surgery No Impressions: Findings: Right carotid system is essentially normal. Findings: Left carotid system has nonstenotic plaque. Recommendations: Test completed on 05/15/2016 at 10:30:00 am. Findings Carotid Duplex: Right: The right proximal common carotid artery has a PSV of 78 cm/s and a EDV of 8 cm/s. The right mid common carotid artery has a PSV of 82 cm/s and a EDV of 20 cm/s. The right distal common carotid artery has a PSV of 59 cm/s and a EDV of 16 cm/s. There is nonstenotic plaque in the right bifurcation with a PSV of 42 cm/s and a EDV of 11 cm/s. There is smooth homogeneous plaque. The right proximal internal carotid artery has a PSV of 43 cm/s and a EDV of 13 cm/s. The right mid internal carotid artery has a PSV of 77 cm/s and a EDV of 28 cm/s. The right distal internal carotid artery has a PSV of 89 cm/s and a EDV of 28 cm/s. The right eca has a PSV of 70 cm/s and a EDV of 11 cm/s. The right vertebral artery has a PSV of 35 cm/s and a EDV of 13 cm/s. Left: The left proximal common carotid artery has a PSV of 81 cm/s and a EDV of 21 cm/s. The left mid common carotid artery has a PSV of 66 cm/s and a EDV of 11 cm/s. The left distal common carotid artery has a PSV of 58 cm/s and a EDV of 17 cm/s. There is nonstenotic plaque in the left bifurcation with a PSV of 58 cm/s and a EDV of 21 cm/s. There is smooth homogeneous plaque. There is nonstenotic plaque in the left proximal internal carotid artery with a PSV of 39 cm/s and a EDV of 14 cm/s. There is smooth homogeneous plaque. The left mid internal carotid artery has a PSV of 71 cm/s and a EDV of 19 cm/s. The left distal internal carotid artery has a PSV of 67 cm/s and a EDV of 21 cm/s. The left eca has a PSV of 60 cm/s and a EDV of 7 cm/s. The left vertebral artery has a PSV of 34 cm/s and a EDV of 11 cm/s. Prior Study: No prior study available for comparison. Carotid Results Right PSV EDV Assessment Proximal CCA 78 8 Normal Mid CCA 82 20 Normal Distal CCA 59 16 Normal Bifurcation 42 11 Non Stenotic Plaque Proximal ICA 43 13 Normal Mid ICA 77 28 Normal Distal ICA 89 28 Normal ECA 70 11 Normal Vertebral Artery 35 13 Normal Left PSV EDV Assessment Proximal CCA 81 21 Normal Mid CCA 66 11 Normal Distal CCA 58 17 Normal Bifurcation 58 21 Non Stenotic Plaque Proximal ICA 39 14 Non Stenotic Plaque Mid ICA 71 19 Normal Distal ICA 67 21 Normal ECA 60 7 Normal Vertebral Artery 34 11 Normal Ratio's Right ICA/CCA Ratio: 1.09 ICA/CCA Values: 89/82 Left ICA/CCA Ratio: 1.08 ICA/CCA Values: 71/66 Updated by Gilles Garner MD, FACS on 05/15/2016 7:12:48 PM Gilles Garner MD electronically signed on 05/15/2016 7:14:46 PM with status of Final
[2016-05-16] MEDS: Cholecalciferol (D-3) 1,000 UNIT TABLET PO SCH (08:44)
[2016-05-16] MEDS: Aspirin 325 MG TABLET PO SCH (08:45)
[2016-05-16] MEDS: Ascorbic Acid 500 MG TABLET PO SCH (08:45)
[2016-05-16] MEDS ORDERED: Metoprolol XL (24 HR) Succ 50 MG TAB.ER.24H PO SCH (09:00)
[2016-05-16 11:11] VITALS: BP 145/81
--- NOTE | 2016-05-16 12:19 | Neurology Progress Note ---
Date of Encounter: 05/16/16 Time of Encounter: 12:16 Assessment and Plan (1) Transient ischemic attack (TIA) Current Visit: Yes Status: Acute Stroke work up negative, considering this to be a TIA. No definitive indication for anticoagulation at present time. Will keep her on Aspirin 325mg daily. Risk factor modification for CVA. Continue statin therapy. May benefit from rhythm recording or loop recording. Patient is to follow up with Cardiology. Will sign off at this time please call if any questions Qualifiers: Transient cerebral ischemia type: unspecified Qualified Code(s): G45.9 - Transient cerebral ischemic attack, unspecified Subjective Principal diagnosis: TIA Interval history: Patient seen and examined. She remained asymptomatic. No focal weakness reported. Back to her baseline. Carotid artery duplex result reviewed and no critical stenosis of ICA reported. Objective - Constitutional Vitals: Temp Pulse Resp BP Pulse Ox 97.9 F 71 15 145/81 95 05/16/16 11:09 05/16/16 11:09 05/16/16 11:09 05/16/16 11:09 05/16/16 11:09 - Neurological Exam Sensorimotor examination: Present: intact Motor Examination: Present: grossly full strength in all extremities Motor examination - left side: 5/5: deltoids, biceps, triceps, wrist flexion, wrist extension, hip flexors, graduating machine operator, quadriceps, tibialis Anterior, toe extension (EHL), plantarflexion Sensation intact: Present: intact Reflex and gait examination: intact Mental Status Examination: Present: awake, alert, oriented to person, oriented to place, oriented to time, follows commands appropriately, answers questions appropriately, no agnosia, no aphasia, no aproxia Cranial nerve examination: Present: PERRL, EOMI, visual steele intact, corneal reflexes brisk symmetrically, sensory to face intact, mastication intact, no facial asymmetry is present, no dysarthria, hearing is intact symmetrically, soft palate elevates bilaterally upon phonation, gag reflex intact, flexes SCM and trapezius muscles symmetrically with full power, tongue protrudes midline, no atrophy or facial fasiculations present Results - Laboratory Findings CBC and BMP: 05/14/16 15:35 05/14/16 15:35 Abnormal lab findings: Abnormal lab results PT 12.9 Seconds (9.4-12.1) H 05/14/16 15:35 BUN 27 mg/dL (7-20) H 05/14/16 15:35 BUN/Creatinine Ratio 32 (6-26) H 05/14/16 15:35 LDL Cholesterol, Calc 116 mg/dL (0-99) H 05/15/16 03:27 Urine Clarity Hazy (Clear) A 05/14/16 23:05 Urine Blood Small (Negative) H 05/14/16 23:05 Ur Leukocyte Esterase Large (Negative) H 05/14/16 23:05 Urine Microscopic RBC 5-15 per hpf (0-3) H 05/14/16 23:05 Urine Microscopic WBC TNTC per hpf (0-3) H 05/14/16 23:05 Ur Squamous Epith Cells Moderate per lpf (None-Few) H 05/14/16 23:05 Consult Discharge Plan - Plan Referrals: Noam Chun MD [Primary Care Provider] - 05/22/16 3:00 pm
--- NOTE | 2016-05-16 12:55 | Discharge Summary ---
Date of Encounter: 05/16/16 Time of Encounter: 12:51 - Discharge Diagnosis (1) Transient ischemic attack (TIA) Priority: Primary Status: Acute Qualifiers: Transient cerebral ischemia type: unspecified Qualified Code(s): G45.9 - Transient cerebral ischemic attack, unspecified (2) CHF (congestive heart failure) Priority: Secondary Status: Chronic Qualifiers: Congestive heart failure type: combined Congestive heart failure chronicity : chronic Qualified Code(s): I50.42 - Chronic combined systolic (congestive) and diastolic (congestive) heart failure (3) Bigeminy Priority: Secondary Status: Acute (4) HTN (hypertension) Priority: Secondary Status: Chronic Qualifiers: Hypertension type: essential hypertension Qualified Code(s): I10 - Essential (primary) hypertension (5) CAD (coronary artery disease) Priority: Secondary Status: Chronic Qualifiers: Coronary Disease-Associated Artery/Lesion type: [place] artery [place] vs. transplanted heart: [place] heart Associated angina: without angina Qualified Code(s): I25.10 - Atherosclerotic heart disease of [place] coronary artery without angina pectoris (6) HLD (hyperlipidemia) Priority: Secondary Status: Chronic Qualifiers: Hyperlipidemia type: unspecified Qualified Code(s): E78.5 - Hyperlipidemia , unspecified (7) PFO (patent foramen ovale) Priority: Secondary Status: Chronic - Discharge Medications Home Medications: Ascorbate Calcium [Vitamin C] 500 mg PO DAILY 05/14/16 [History] Aspirin 325 mg PO DAILY 05/14/16 [History] Atorvastatin [Lipitor] 40 mg PO HS 05/14/16 [History] Cholecalciferol (D-3) [Vitamin D] 1,000 unit PO DAILY 05/14/16 [History] Lisinopril [Zestril] 10 mg PO DAILY 05/14/16 [History] Metoprolol Succinate 100 mg PO DAILY 05/14/16 [History] Allergies/Adverse Reactions: Allergies No Known Allergies Allergy (Verified 05/14/16 14:58) Procedures/tests Complete & Pending: Procedures Performed prior 72 hours Category Date Time Status MR head/brain wo con [MR] Stat MRI 05/14/16 17:35 Completed EKG [ECG 12 lead ECG] [ECG] AM 0600 Y 05/15/16 06:00 Completed EV carotid duplex imaging BI Routine Y 05/15/16 17:31 Completed EV echocardiogram Routine Y 05/15/16 17:31 Completed Date of admission: 05/14/16 16:55 Primary care physician: Noam Chun MD Consults: 05/15/16 13:40 Consult to Cardiology [CONS] Routine Comment: Consulting Provider: Cardiology [facility] Reason for Consult: EKG with BIgeminy, TIA, ECHO with PFO and WMA, Patient with multiple risk factors. Pls review, thank you. Call Completed: No Consult to Neurology [CONS] Routine Consulting Provider: [facility] Reason for Consult: TIA, abnormal EKG and ECHO Call Completed: No Discharging clinician: Shahid Little Anticipated date of discharge: 05/16/16 - Patient Status Disposition: Home, Self-Care Condition: Good Functional capacity at discharge: independent ambulation Overall status at discharge: patient is back to baseline - Discharge Instructions Instructions: Chronic Hypertension (DC), Ischemic Stroke, Aviation Project Manager (GEN) Follow Up With: Noam Chun MD [Primary Care Provider] - 05/22/16 3:00 pm Max Larios, AUDIO OPERATOR [Advanced Practice Nurse] - (We have requested an appt with [facility] for hospital follow up. Office will call you within 24 business hours. ) - Diet and Activity Activity: resume usual activities as tolerated Diet: low fat, low cholesterol, low salt diet Interval History: 80 year old elderly, every functional female with CAD, hyperlipidemia who developed transient right leg weakness, with total resolution, no speech or right arm involvement but may be overlooked on presentation or may be leg weakness more than arm. Hospital course: Ms. Christopher is a 80 year old female admitted to observation for work up for TIA Patient had presented with RLE and RUE weakness completely resolved prior to admission She has remained stable with no neurologic deficits Work up revealed Head CT and Brin MRI with chronic microvascular changes EKG on admission with bigeminy, Repeated 05/15 with PVCs, Bigeminy, ECHO showed LVEF of 45%, N LV chmaber size, Mild LVSD, MIld LVDD, BBB, Severely dilated LA, small PFO, Hypokinetic apical, inferior, basal inferior wright, Trivial pericardial effusion Patient has no chest pain and no current evidence of congestion Cardiology was consulted based on the findings on her EKG and ECHO and they recommend follow up as outpatient, patient was already on appropriate CHF regimen Neurology was also consulted and recommended that patient may benefit from rhythm recording or loop . She will follow up with cardiology for this Patient is already on ASA, Lipitor, BB, ACEI, she is stable for discharge, continue same at home She is a non-smoker She states immunization is UTD Plan of care discussed, verbalized understanding - Time Spent with Patient Total time spent providing and/or coordinating discharge services: Less than 30 minutes - Constitutional Vitals: Temp Pulse Resp BP Pulse Ox 97.9 F 71 15 145/81 95 05/16/16 11:09 05/16/16 11:09 05/16/16 11:09 05/16/16 11:09 05/16/16 11:09 General appearance: Present: cooperative, A&O X 3, pleasant, no acute distress, underweight - Head Head exam: Present: atraumatic, normocephalic - Eye Eye exam: Present: PERRL, conjuntiva pink, sclera anicteric Pupils: Present: PERRL - Neck Neck exam general surgery: Present: supple, trachea midline. Absent: lymphadenopathy - Respiratory Respiratory exam: Present: CTAB. Absent: accessory muscle use, rales, rhonchi, wheezes - Cardiovascular Cardiovascular exam: Present: RRR, +S1, +S2. Absent: diastolic murmur, gallop, rubs, systolic murmur - GI/Abdominal GI/Abdominal exam: Present: normal bowel sounds, soft, no peritoneal signs. Absent: distended, tenderness - Extremities Exam Extremities exam: Present: warm, radial pulses palpable and symetrical. Absent : calf tenderness, cyanotic, pedal edema - Neurological Exam Neurological exam: Present: CN II-XII intact, oriented X3, no focal deficits. Absent: pronater drift, facial droop, speech deficit - Skin Skin exam: Present: dry, intact
== END 2016-05-16 14:15 | disposition home or self-care (01) ==
LOC: 3BNU 14:26 → EMEROO 14:26 → SUATTDRO 16:55 → 3BNU 18:00
PROVIDERS: ADMIT Internal Medicine; ATTEND Internal Medicine

== ENCOUNTER 2019-07-03 16:22 | Inpatient (IN) ==
[2019-07-03] MEDS ORDERED: Mag Hydrox/Al Hydrox/Simeth 30 ML UDC PO PRN (18:19)
[2019-07-03] MEDS ORDERED: Acetaminophen 325 MG TABLET PO PRN (18:19)
[2019-07-03] MEDS ORDERED: Naloxone 0.4 MG/ML INJ IVP PRN (18:19)
[2019-07-03] MEDS ORDERED: Ondansetron ODT 4 MG TAB.RAPDIS SL PRN (18:19)
[2019-07-03] MEDS ORDERED: *HR* HYDROcodone/Acet 5/325 mg TABLET PO PRN (18:19)
[2019-07-03] MEDS ORDERED: MOM Conc 10 ML UD.LIQ PO PRN (18:19)
[2019-07-04 02:52] LABS: Hematocrit 39.5 % (35.3-44.9); Hemoglobin 13.2 g/dL (11.5-15.4); Mean Corpuscular HGB Conc 33.4 g/dL (31.6-35.5); Mean Corpuscular Hemoglobin 32.6 pg (28.0-33.3); Mean Corpuscular Volume 97.5 fL (83.0-100.0); Mean Platelet Volume 12.3 fL (9.4-12.4); Platelet Count 174 K/mcL (140-400); Red Blood Count 4.05 M/mcL (3.82-4.97); Red Cell Distribution Width 14.4 % (11.5-14.5); White Blood Count 8.3 K/mcL (4.3-11.1)
[2019-07-04 03:21] LABS: BUN/Creatinine Ratio 33 (6-26); Blood Urea Nitrogen 28 mg/dL (8-23); Calcium 8.9 mg/dL (8.6-10.3); Carbon Dioxide 20 mEq/L (23-29); Chloride 111 mEq/L (98-107); Glucose 110 mg/dL (70-105); Magnesium 2.2 mg/dL (1.6-2.6); Osmolality,Calculated 300 (280-300); Potassium 3.7 mEq/L (3.5-5.1); Sodium 142 mEq/L (136-145); eGFR For African Americans > 60 (> 60); eGFR For Non-African Americans > 60 (> 60)
[2019-07-04] MEDS: lisinopriL 10 MG TABLET PO SCH (08:03)
[2019-07-04] MEDS: Metoprolol XL (24 HR) Succ 50 MG TAB.ER.24H PO SCH (08:03)
[2019-07-04] MEDS ORDERED: Furosemide 20 MG/2 ML VIAL IVP SCH (09:00)
[2019-07-04] MEDS ORDERED: Aspirin 325 MG TABLET PO ONE (10:23)
[2019-07-04 12:16] LABS: Chol/HDL Ratio 3.6 (0-4.9)
[2019-07-04 12:19] LABS: Troponin I 0.35 ng/mL (< 0.04)
[2019-07-04 12:32] LABS: Thyroid Stimulating Hormone 2.362 mcIU/mL (0.340-5.600)
[2019-07-04] MEDS ORDERED: QUEtiapine Fumarate 25 MG TABLET PO ONE (21:21)
[2019-07-04] MEDS ORDERED: *HR* LORazepam 2 MG/ML VIAL IVP ONE (21:22)
[2019-07-05 03:17] LABS: Calcium 8.7 mg/dL (8.6-10.3); Magnesium 2.2 mg/dL (1.6-2.6); Potassium 3.5 mEq/L (3.5-5.1)
[2019-07-05] MEDS ORDERED: *HR* Enoxaparin 30 MG/0.3 ML SYRINGE SQ SCH (06:00)
[2019-07-05] MEDS: Aspirin 81 MG TAB.CHEW PO SCH (09:28)
[2019-07-05] MEDS: Metoprolol XL (24 HR) Succ 50 MG TAB.ER.24H PO SCH (09:28)
[2019-07-05] MEDS: lisinopriL 10 MG TABLET PO SCH (09:29)
[2019-07-05] MEDS ORDERED: *HR* Heparin 5,000 UNIT/ML VIAL IVP PRN ×2 (14:00)
[2019-07-05] MEDS ORDERED: *HR* Heparin 5,000 UNIT/ML VIAL IVP ONE (14:00)
[2019-07-05 14:24] LABS: Hematocrit 41.5 % (35.3-44.9); Hemoglobin 13.4 g/dL (11.5-15.4); Mean Corpuscular HGB Conc 32.3 g/dL (31.6-35.5); Mean Corpuscular Hemoglobin 31.9 pg (28.0-33.3); Mean Corpuscular Volume 98.8 fL (83.0-100.0); Platelet Count 178 K/mcL (140-400); Red Cell Distribution Width 14.3 % (11.5-14.5); White Blood Count 7.3 K/mcL (4.3-11.1)
[2019-07-05] MEDS ORDERED: Furosemide 40 MG/4 ML VIAL IVP ONE (14:30)
[2019-07-05 14:37] LABS: Heparin anti-factor XA UFH 0.11 IU/mL (0.30-0.70)
[2019-07-05 14:38] LABS: INR 1.1
[2019-07-05] MEDS: Heparin 25,000 UNIT/250 ML D5W 25,000 UNIT/250 ML IV.SOLN IVC SCH (14:42)
[2019-07-06 04:09] LABS: Basophils # 0.1 K/mcL (0.0-0.2); Basophils % 0.7 %; Eosinophils # 0.5 K/mcL (0.0-0.6); Eosinophils % 6.1 %; Hematocrit 38.7 % (35.3-44.9); Hemoglobin 12.6 g/dL (11.5-15.4); Immature Granulocytes % 0.3 % (0-4); Lymphocytes # 1.9 K/mcL (0.6-4.6); Lymphocytes % 25.1 %; Mean Corpuscular HGB Conc 32.6 g/dL (31.6-35.5); Mean Corpuscular Hemoglobin 32.1 pg (28.0-33.3); Mean Corpuscular Volume 98.5 fL (83.0-100.0); Mean Platelet Volume 11.9 fL (9.4-12.4); Monocytes # 0.7 K/mcL (0.0-1.3); Monocytes % 8.8 %; Neutrophils # 4.4 K/mcL (1.6-8.9); Platelet Count 167 K/mcL (140-400); Red Blood Count 3.93 M/mcL (3.82-4.97); Red Cell Distribution Width 14.2 % (11.5-14.5); White Blood Count 7.4 K/mcL (4.3-11.1)
[2019-07-06 04:32] LABS: BUN/Creatinine Ratio 41 (6-26); Blood Urea Nitrogen 41 mg/dL (8-23); Calcium 8.7 mg/dL (8.6-10.3); Carbon Dioxide 25 mEq/L (23-29); Chloride 110 mEq/L (98-107); Glucose 157 mg/dL (70-105); Osmolality,Calculated 307 (280-300); Potassium 3.4 mEq/L (3.5-5.1); Sodium 142 mEq/L (136-145); eGFR For African Americans > 60 (> 60); eGFR For Non-African Americans 54 (> 60)
[2019-07-06] MEDS: lisinopriL 10 MG TABLET PO SCH (08:57)
[2019-07-06] MEDS: Metoprolol XL (24 HR) Succ 50 MG TAB.ER.24H PO SCH (08:58)
[2019-07-06] MEDS: Aspirin 81 MG TAB.CHEW PO SCH (08:58)
[2019-07-06] MEDS ORDERED: Furosemide 20 MG TABLET PO SCH (09:00)
[2019-07-06] MEDS ORDERED: Metoprolol XL (24 HR) Succ 25 MG TAB.ER.24H PO ONE (09:21)
[2019-07-06] MEDS: Furosemide 40 MG/4 ML VIAL IVP SCH (09:51)
[2019-07-06] MEDS ORDERED: QUEtiapine Fumarate 25 MG TABLET PO SCH (21:00)
[2019-07-07 02:02] LABS: BUN/Creatinine Ratio 39 (6-26); Blood Urea Nitrogen 39 mg/dL (8-23); Calcium 8.9 mg/dL (8.6-10.3); Carbon Dioxide 24 mEq/L (23-29); Chloride 109 mEq/L (98-107); Glucose 126 mg/dL (70-105); Osmolality,Calculated 301 (280-300); Sodium 140 mEq/L (136-145); eGFR For African Americans > 60 (> 60); eGFR For Non-African Americans 54 (> 60)
[2019-07-07] MEDS: Heparin 25,000 UNIT/250 ML D5W 25,000 UNIT/250 ML IV.SOLN IVC SCH (05:37)
[2019-07-07] MEDS ORDERED: Metoprolol XL (24 HR) Succ 50 MG TAB.ER.24H PO SCH (09:00)
[2019-07-07] MEDS ORDERED: lisinopriL 10 MG TABLET PO SCH (09:24)
[2019-07-07] MEDS: Furosemide 40 MG/4 ML VIAL IVP SCH (10:02)
[2019-07-07] MEDS: Aspirin 81 MG TAB.CHEW PO SCH (10:02)
[2019-07-07 10:06] VITALS: BP 108/64
[2019-07-07] MEDS ORDERED: *HR* Rivaroxaban 15 MG TABLET PO SCH (12:00)
[2019-07-08] MEDS ORDERED: Metoprolol XL (24 HR) Succ 50 MG TAB.ER.24H PO SCH (09:00)
== END 2019-07-07 16:58 | disposition home or self-care (01) | DRG 280 ==
LOC: 2NENU → SUATTDRO 17:42 → 2ANU 07-04 21:09
PROVIDERS: ADMIT Student in an Organized Health Care Education/Training Program; ATTEND Internal Medicine

== ENCOUNTER 2020-09-16 15:03 | Inpatient (IN) ==
[2020-09-16] MEDS ORDERED: 0.9 % Sodium Chloride 1,000 ML IVC ONE (15:21)
[2020-09-16 16:26] LABS: Basophils % 0.5 %; Eosinophils % 0.5 %; Hematocrit 19.2 % (35.3-44.9); Immature Granulocytes % 0.2 % (0-4); Lymphocytes # 0.8 K/mcL (0.6-4.6); Lymphocytes % 9.1 %; Mean Corpuscular HGB Conc 27.6 g/dL (31.6-35.5); Mean Corpuscular Hemoglobin 20.5 pg (28.0-33.3); Mean Corpuscular Volume 74.4 fL (83.0-100.0); Mean Platelet Volume 11.3 fL (9.4-12.4); Monocytes # 0.6 K/mcL (0.0-1.3); Monocytes % 7.6 %; Neutrophils # 6.9 K/mcL (1.6-8.9); Platelet Count 343 K/mcL (140-400); Red Blood Count 2.58 M/mcL (3.82-4.97); Red Cell Distribution Width 19.5 % (11.5-14.5); Segmented Neutrophils % 82.1 %; White Blood Count 8.4 K/mcL (4.3-11.1)
[2020-09-16 17:12] LABS: Calcium 9.1 mg/dL (8.6-10.3); Potassium 3.4 mEq/L (3.5-5.1); Troponin I 0.03 ng/mL (< 0.04)
[2020-09-16 17:15] LABS: Anisocytosis 1+ (Not Present); Hemoglobin 5.3 g/dL (11.5-15.4); Hypochromasia Present (Not Present); Microcytosis Present (Not Present); Platelet Estimate Normal (Normal)
[2020-09-16] MEDS: Pantoprazole 40 MG in 0.9 % Sodium Chloride Mini Bag 100 ML IVC SCH (20:43)
[2020-09-16] MEDS ORDERED: Ondansetron 4 MG/2 ML VIAL IVP PRN (23:51)
[2020-09-16] MEDS ORDERED: Naloxone 0.4 MG/ML INJ IVP PRN (23:51)
[2020-09-17] MEDS ORDERED: Potassium Chloride 40 MEQ, Lidocaine 1% 2 ML in 0.9 % Sodium Chloride 500 ML IVPB ONE (01:55)
[2020-09-17 03:11] LABS: Hematocrit 23.1 % (35.3-44.9); Mean Corpuscular HGB Conc 29.9 g/dL (31.6-35.5); Mean Corpuscular Hemoglobin 23.1 pg (28.0-33.3); Mean Corpuscular Volume 77.3 fL (83.0-100.0); Mean Platelet Volume 11.4 fL (9.4-12.4); Platelet Count 318 K/mcL (140-400); Red Blood Count 2.99 M/mcL (3.82-4.97); Red Cell Distribution Width 19.8 % (11.5-14.5); White Blood Count 11.5 K/mcL (4.3-11.1)
[2020-09-17 03:20] LABS: Hemoglobin 6.9 g/dL (11.5-15.4)
[2020-09-17 03:41] LABS: Alanine Aminotransferase 8 Units/L (7-52); Albumin 3.6 g/dL (3.5-5.7); Albumin/Globulin Ratio 1.6 (1.1-2.2); Alkaline Phosphatase 45 Units/L (34-104); Aspartate Amino Transferase 13 Units/L (13-39); BUN/Creatinine Ratio 32 (6-26); Blood Urea Nitrogen 27 mg/dL (8-23); Calcium 8.3 mg/dL (8.6-10.3); Carbon Dioxide 24 mEq/L (23-29); Chloride 104 mEq/L (98-107); Globulin 2.2 g/dL (2.4-3.5); Glucose 122 mg/dL (70-105); Magnesium 1.8 mg/dL (1.6-2.6); Osmolality,Calculated 298 (280-300); Phosphorous 2.8 mg/dL (2.7-4.5); Sodium 141 mEq/L (136-145); Total Protein 5.8 g/dL (6.4-8.9); eGFR For African Americans > 60 (> 60); eGFR For Non-African Americans > 60 (> 60)
[2020-09-17] MEDS: Pantoprazole 40 MG in 0.9 % Sodium Chloride Mini Bag 100 ML IVC SCH ×2 (04:14→17:41)
[2020-09-17 07:08] LABS: Estimated Average Glucose 117 mg/dl; Hemoglobin A1C 5.7 %
[2020-09-17] MEDS ORDERED: lisinopriL 5 MG TABLET PO SCH (09:00)
[2020-09-17] MEDS ORDERED: Metoprolol XL (24 HR) Succ 25 MG TAB.ER.24H PO SCH (09:00)
[2020-09-17 09:59] LABS: % Iron Saturation 3 % (15-50); Iron 13 mcg/dL (50-170); Transferrin 278 mg/dL (203-362)
[2020-09-17 10:40] LABS: Folate > 22.3 ng/mL (3.0-16.0); Vitamin B12 812 pg/mL (250-1100)
[2020-09-17] MEDS ORDERED: 0.9 % Sodium Chloride 250 ML ONE (17:25)
[2020-09-17] MEDS: Melatonin 3 MG TABLET PO PRN (20:44)
[2020-09-18] MEDS: Pantoprazole 40 MG in 0.9 % Sodium Chloride Mini Bag 100 ML IVC SCH ×3 (00:33→08:03)
[2020-09-18] MEDS ORDERED: Haloperidol Lactate 5 MG/ML VIAL IVP ONE (01:12)
[2020-09-18] MEDS: Furosemide 40 MG TABLET PO SCH (07:56)
[2020-09-18 08:13] LABS: Basophils # 0.1 K/mcL (0.0-0.2); Basophils % 0.4 %; Eosinophils # 0.2 K/mcL (0.0-0.6); Eosinophils % 1.3 %; Hematocrit 24.3 % (35.3-44.9); Hemoglobin 7.4 g/dL (11.5-15.4); Immature Granulocytes % 0.4 % (0-4); Lymphocytes # 1.4 K/mcL (0.6-4.6); Lymphocytes % 12.7 %; Mean Corpuscular HGB Conc 30.5 g/dL (31.6-35.5); Mean Corpuscular Hemoglobin 23.6 pg (28.0-33.3); Mean Corpuscular Volume 77.6 fL (83.0-100.0); Mean Platelet Volume 10.6 fL (9.4-12.4); Monocytes # 0.8 K/mcL (0.0-1.3); Neutrophils # 8.9 K/mcL (1.6-8.9); Platelet Count 237 K/mcL (140-400); Red Blood Count 3.13 M/mcL (3.82-4.97); Red Cell Distribution Width 18.6 % (11.5-14.5); Segmented Neutrophils % 78.2 %; White Blood Count 11.4 K/mcL (4.3-11.1)
[2020-09-18 08:37] LABS: BUN/Creatinine Ratio 21 (6-26); Blood Urea Nitrogen 16 mg/dL (8-23); Calcium 8.2 mg/dL (8.6-10.3); Carbon Dioxide 22 mEq/L (23-29); Chloride 111 mEq/L (98-107); Glucose 102 mg/dL (70-105); Osmolality,Calculated 289 (280-300); Potassium 3.4 mEq/L (3.5-5.1); Sodium 139 mEq/L (136-145); eGFR For African Americans > 60 (> 60); eGFR For Non-African Americans > 60 (> 60)
[2020-09-18] MEDS: Pantoprazole 40 MG VIAL IVP SCH (17:27)
[2020-09-18] MEDS: Melatonin 3 MG TABLET PO PRN (22:17)
[2020-09-19] MEDS: Pantoprazole 40 MG VIAL IVP SCH ×2 (05:34→18:18)
[2020-09-19 05:47] LABS: Basophils # 0.1 K/mcL (0.0-0.2); Basophils % 0.6 %; Eosinophils # 0.2 K/mcL (0.0-0.6); Eosinophils % 2.6 %; Hematocrit 25.9 % (35.3-44.9); Hemoglobin 7.7 g/dL (11.5-15.4); Immature Granulocytes % 0.4 % (0-4); Lymphocytes # 1.2 K/mcL (0.6-4.6); Lymphocytes % 13.8 %; Mean Corpuscular HGB Conc 29.7 g/dL (31.6-35.5); Mean Corpuscular Hemoglobin 23.8 pg (28.0-33.3); Mean Corpuscular Volume 79.9 fL (83.0-100.0); Mean Platelet Volume 11.2 fL (9.4-12.4); Monocytes # 0.8 K/mcL (0.0-1.3); Monocytes % 9.1 %; Neutrophils # 6.6 K/mcL (1.6-8.9); Nucleated Red Blood Cells 0.2 /100 WBC (0); Platelet Count 257 K/mcL (140-400); Red Blood Count 3.24 M/mcL (3.82-4.97); Red Cell Distribution Width 19.4 % (11.5-14.5); Segmented Neutrophils % 73.5 %; White Blood Count 8.9 K/mcL (4.3-11.1)
[2020-09-19 06:06] LABS: BUN/Creatinine Ratio 31 (6-26); Blood Urea Nitrogen 23 mg/dL (8-23); Calcium 8.2 mg/dL (8.6-10.3); Carbon Dioxide 21 mEq/L (23-29); Chloride 106 mEq/L (98-107); Glucose 135 mg/dL (70-105); Magnesium 1.6 mg/dL (1.6-2.6); Osmolality,Calculated 286 (280-300); Potassium 3.8 mEq/L (3.5-5.1); Sodium 135 mEq/L (136-145); eGFR For African Americans > 60 (> 60); eGFR For Non-African Americans > 60 (> 60)
[2020-09-19] MEDS: Furosemide 40 MG TABLET PO SCH (11:01)
[2020-09-19] MEDS ORDERED: Lidocaine -MPF 2% 5 ML VIAL ONE (14:51)
[2020-09-19] MEDS ORDERED: EPHEDrine 50 MG/ML VIAL ONE (15:35)
[2020-09-20] MEDS: Melatonin 3 MG TABLET PO PRN (02:04)
[2020-09-20] MEDS: Pantoprazole 40 MG VIAL IVP SCH (06:06)
[2020-09-20 06:30] LABS: Hematocrit 27.3 % (35.3-44.9); Hemoglobin 8.1 g/dL (11.5-15.4); Mean Corpuscular HGB Conc 29.7 g/dL (31.6-35.5); Mean Corpuscular Hemoglobin 23.9 pg (28.0-33.3); Mean Corpuscular Volume 80.5 fL (83.0-100.0); Mean Platelet Volume 11.4 fL (9.4-12.4); Platelet Count 253 K/mcL (140-400); Red Blood Count 3.39 M/mcL (3.82-4.97); White Blood Count 12.8 K/mcL (4.3-11.1)
[2020-09-20 07:50] VITALS: BP 117/75
[2020-09-20] MEDS: Furosemide 40 MG TABLET PO SCH (11:11)
== END 2020-09-20 18:53 | disposition home or self-care (01) | DRG 394 ==
LOC: EMEROOARM 15:03 → CDU 15:03 → SUATTDRO 20:08 → CDU 22:08 → SUATTDRO 09-17 18:16 → 3ANU 09-18 16:47
PROVIDERS: ADMIT Family Medicine; ATTEND Internal Medicine
PROC: ENDOCBX (2020-09-19 13:00)
PROC: ENDOEBX (2020-09-19 13:00)

== ENCOUNTER 2020-10-15 19:46 | Inpatient (IN) ==
[2020-10-15 20:29] LABS: Basophils % 0.4 %; Immature Granulocytes % 0.5 % (0-4)
[2020-10-15 20:31] LABS: Eosinophils # 0.2 K/mcL (0.0-0.6); Eosinophils % 2.2 %; Hematocrit 19.1 % (35.3-44.9); Lymphocytes # 1.4 K/mcL (0.6-4.6); Lymphocytes % 17.6 %; Mean Corpuscular HGB Conc 29.8 g/dL (31.6-35.5); Mean Corpuscular Hemoglobin 23.4 pg (28.0-33.3); Mean Corpuscular Volume 78.3 fL (83.0-100.0); Mean Platelet Volume 11.9 fL (9.4-12.4); Monocytes # 0.7 K/mcL (0.0-1.3); Monocytes % 9.4 %; Neutrophils # 5.5 K/mcL (1.6-8.9); Nucleated Red Blood Cells 0.8 /100 WBC (0); Platelet Count 319 K/mcL (140-400); Red Blood Count 2.44 M/mcL (3.82-4.97); Red Cell Distribution Width 23.1 % (11.5-14.5); Segmented Neutrophils % 69.9 %; White Blood Count 7.8 K/mcL (4.3-11.1)
[2020-10-15 20:50] LABS: Albumin 3.5 g/dL (3.5-5.7); Albumin/Globulin Ratio 1.5 (1.1-2.2); Bilirubin,Total 0.3 mg/dL (0.3-1.0); Calcium 8.7 mg/dL (8.6-10.3); Globulin 2.4 g/dL (2.4-3.5); Potassium 3.3 mEq/L (3.5-5.1); Total Protein 5.9 g/dL (6.4-8.9)
[2020-10-15 20:58] LABS: Hemoglobin 5.7 g/dL (11.5-15.4)
[2020-10-15 21:06] LABS: Anisocytosis 2+ (Not Present); Hypochromasia Present (Not Present)
[2020-10-15 21:07] LABS: Platelet Estimate Normal (Normal); Poikilocytosis 1+ (Not Present); Polychromasia 1+ (Not Present)
[2020-10-15] MEDS ORDERED: 0.9 % Sodium Chloride 250 ML ONE (22:33)
[2020-10-15] MEDS ORDERED: Pantoprazole 80 MG in 0.9 % Sodium Chloride 50 ML IVPB ONE (22:37)
[2020-10-15] MEDS ORDERED: Naloxone 0.4 MG/ML INJ IVP PRN (23:40)
[2020-10-15] MEDS ORDERED: Insulin LISPRO 300 UNITS/3 ML VIAL SUBQ SCH (23:45)
[2020-10-15] MEDS ORDERED: *HR* Dextrose 50 % in Water (Vial) 50 ML VIAL IVP PRN (23:49)
[2020-10-15] MEDS ORDERED: D5% in Water 1,000 ML IVC PRN (23:49)
[2020-10-15] MEDS ORDERED: Dextrose Gel 15 GM/37.5 ML TUBE PO PRN ×2 (23:49)
[2020-10-16 03:45] LABS: Alanine Aminotransferase 10 Units/L (7-52); Albumin 3.1 g/dL (3.5-5.7); Albumin/Globulin Ratio 1.4 (1.1-2.2); Alkaline Phosphatase 52 Units/L (34-104); Aspartate Amino Transferase 13 Units/L (13-39); BUN/Creatinine Ratio 33 (6-26); Bilirubin,Total 0.5 mg/dL (0.3-1.0); Blood Urea Nitrogen 31 mg/dL (8-23); Calcium 8.2 mg/dL (8.6-10.3); Carbon Dioxide 21 mEq/L (23-29); Chloride 106 mEq/L (98-107); Globulin 2.2 g/dL (2.4-3.5); Glucose 120 mg/dL (70-105); Magnesium 1.9 mg/dL (1.6-2.6); Osmolality,Calculated 292 (280-300); Phosphorous 2.9 mg/dL (2.7-4.5); Potassium 3.6 mEq/L (3.5-5.1); Sodium 137 mEq/L (136-145); Total Protein 5.3 g/dL (6.4-8.9); eGFR For African Americans > 60 (> 60); eGFR For Non-African Americans 57 (> 60)
[2020-10-16] MEDS ORDERED: Ondansetron ODT 4 MG TAB.RAPDIS SL PRN (03:58)
[2020-10-16 04:15] LABS: Hemoglobin 7.2 g/dL (11.5-15.4); Red Blood Count 2.91 M/mcL (3.82-4.97); White Blood Count 7.8 K/mcL (4.3-11.1)
[2020-10-16 04:16] LABS: Hematocrit 24.1 % (35.3-44.9); Mean Corpuscular HGB Conc 29.9 g/dL (31.6-35.5); Mean Corpuscular Hemoglobin 24.7 pg (28.0-33.3); Mean Corpuscular Volume 82.8 fL (83.0-100.0); Mean Platelet Volume 12.5 fL (9.4-12.4); Platelet Count 259 K/mcL (140-400); Red Cell Distribution Width 20.1 % (11.5-14.5); Segmented Neutrophils % 63.8 %
[2020-10-16 04:17] LABS: Immature Granulocytes % 0.3 % (0-4)
[2020-10-16 04:18] LABS: Basophils % 0.5 %; Eosinophils # 0.2 K/mcL (0.0-0.6); Eosinophils % 2.7 %; Lymphocytes # 1.9 K/mcL (0.6-4.6); Lymphocytes % 24.2 %; Monocytes # 0.7 K/mcL (0.0-1.3); Monocytes % 8.5 %
[2020-10-16] MEDS: Insulin LISPRO 300 UNITS/3 ML VIAL SUBQ SCH ×3 (05:38→18:15)
[2020-10-16] MEDS: Pantoprazole 40 MG VIAL IVP SCH ×2 (05:39→17:50)
[2020-10-16 05:50] LABS: Bacteria,Urine Few per hpf (None-Few); Bilirubin,Urine Negative (Negative); Blood,Urine Moderate (Negative); Clarity,Urine Turbid (Clear); Color,Urine Light-Yellow (Yellow); Glucose,Urine (UA) Normal (Normal); Ketones,Urine Negative (Negative); Leukocyte Esterase,Urine Large (Negative); Mucus,Urine Few per lpf (None-Few); Nitrite,Urine Negative (Negative); PH,Urine 5.5 pH Units (5.0-8.0); Protein,Urine 30 mg/dL (Neg-Trace); Specific Gravity,Urine 1.024 (1.010-1.025); Squamous Epithelial Cell,Urine Few per hpf (None-Few); Urobilinogen,Urine Normal (Normal); WBC,Urine TNTC per hpf (0-3)
[2020-10-16 09:47] LABS: Hematocrit 23.5 % (35.3-44.9)
[2020-10-16 10:13] LABS: Hemoglobin 7.3 g/dL (11.5-15.4)
[2020-10-16 13:20] LABS: Hematocrit 24.8 % (35.3-44.9); Hemoglobin 7.9 g/dL (11.5-15.4)
[2020-10-16] MEDS ORDERED: SODIUM CHLORIDE/NAHCO3/KCL/PEG 4,000 ML SOLN.RECON PO ONE (17:00)
[2020-10-16 18:25] LABS: Hematocrit 24.4 % (35.3-44.9); Hemoglobin 7.5 g/dL (11.5-15.4)
[2020-10-17] MEDS: Insulin LISPRO 300 UNITS/3 ML VIAL SUBQ SCH ×4 (00:47→18:51)
[2020-10-17 01:53] LABS: Basophils % 0.4 %; Eosinophils # 0.2 K/mcL (0.0-0.6); Hematocrit 23.6 % (35.3-44.9); Hemoglobin 7.3 g/dL (11.5-15.4); Immature Granulocytes % 0.4 % (0-4); Lymphocytes # 1.7 K/mcL (0.6-4.6); Lymphocytes % 18.4 %; Mean Corpuscular HGB Conc 30.9 g/dL (31.6-35.5); Mean Corpuscular Hemoglobin 24.1 pg (28.0-33.3); Mean Corpuscular Volume 77.9 fL (83.0-100.0); Mean Platelet Volume 11.9 fL (9.4-12.4); Monocytes # 0.7 K/mcL (0.0-1.3); Monocytes % 7.5 %; Neutrophils # 6.6 K/mcL (1.6-8.9); Nucleated Red Blood Cells 0.5 /100 WBC (0); Platelet Count 282 K/mcL (140-400); Red Blood Count 3.03 M/mcL (3.82-4.97); Segmented Neutrophils % 71.3 %; White Blood Count 9.2 K/mcL (4.3-11.1)
[2020-10-17 02:15] LABS: BUN/Creatinine Ratio 25 (6-26); Blood Urea Nitrogen 25 mg/dL (8-23); Calcium 8.3 mg/dL (8.6-10.3); Carbon Dioxide 22 mEq/L (23-29); Chloride 107 mEq/L (98-107); Glucose 102 mg/dL (70-105); Osmolality,Calculated 291 (280-300); Potassium 3.4 mEq/L (3.5-5.1); Sodium 138 mEq/L (136-145); eGFR For African Americans > 60 (> 60); eGFR For Non-African Americans 52 (> 60)
[2020-10-17] MEDS: Pantoprazole 40 MG VIAL IVP SCH ×2 (05:31→18:54)
[2020-10-17] MEDS ORDERED: Ringers Solution, Lactated 1,000 ML IVC SCH (10:00)
[2020-10-17 21:15] LABS: Hemoglobin 7.4 g/dL (11.5-15.4)
[2020-10-17] MEDS ORDERED: *HR* Propofol 500 MG/50 ML BOTTLE IVP ONE (22:53)
[2020-10-17] MEDS ORDERED: Lidocaine -MPF 2% 5 ML VIAL SQ ONE (22:53)
[2020-10-18 03:17] LABS: Basophils % 0.3 %; Eosinophils # 0.2 K/mcL (0.0-0.6); Hematocrit 21.7 % (35.3-44.9); Hemoglobin 6.9 g/dL (11.5-15.4); Immature Granulocytes % 0.3 % (0-4); Lymphocytes # 1.5 K/mcL (0.6-4.6); Lymphocytes % 19.2 %; Mean Corpuscular HGB Conc 31.8 g/dL (31.6-35.5); Mean Corpuscular Hemoglobin 25.1 pg (28.0-33.3); Mean Corpuscular Volume 78.9 fL (83.0-100.0); Mean Platelet Volume 12.1 fL (9.4-12.4); Monocytes # 0.6 K/mcL (0.0-1.3); Monocytes % 7.9 %; Neutrophils # 5.5 K/mcL (1.6-8.9); Nucleated Red Blood Cells 0.9 /100 WBC (0); Platelet Count 277 K/mcL (140-400); Red Blood Count 2.75 M/mcL (3.82-4.97); Red Cell Distribution Width 20.8 % (11.5-14.5); Segmented Neutrophils % 70.3 %; White Blood Count 7.9 K/mcL (4.3-11.1)
[2020-10-18 03:42] LABS: BUN/Creatinine Ratio 23 (6-26); Blood Urea Nitrogen 23 mg/dL (8-23); Calcium 8.2 mg/dL (8.6-10.3); Carbon Dioxide 21 mEq/L (23-29); Chloride 106 mEq/L (98-107); Glucose 109 mg/dL (70-105); Osmolality,Calculated 284 (280-300); Potassium 3.8 mEq/L (3.5-5.1); Sodium 135 mEq/L (136-145); eGFR For African Americans > 60 (> 60); eGFR For Non-African Americans 54 (> 60)
[2020-10-18] MEDS ORDERED: 0.9 % Sodium Chloride 250 ML ONE (05:54)
[2020-10-18] MEDS: Pantoprazole 40 MG VIAL IVP SCH ×2 (06:02→17:18)
[2020-10-18] MEDS: Metoprolol XL (24 HR) Succ 25 MG TAB.ER.24H PO SCH (09:45)
[2020-10-18 16:12] LABS: Hematocrit 27.3 % (35.3-44.9); Hemoglobin 8.6 g/dL (11.5-15.4)
[2020-10-19] MEDS: Pantoprazole 40 MG VIAL IVP SCH ×2 (05:57→16:20)
[2020-10-19] MEDS: Metoprolol XL (24 HR) Succ 25 MG TAB.ER.24H PO SCH (07:48)
[2020-10-19 08:02] LABS: Mean Platelet Volume 12.4 fL (9.4-12.4); Red Cell Distribution Width 20.2 % (11.5-14.5)
[2020-10-19 08:04] LABS: Hematocrit 25.2 % (35.3-44.9); Immature Platelets 8.1 % (1.1-6.1); Mean Corpuscular HGB Conc 31.7 g/dL (31.6-35.5); Mean Corpuscular Hemoglobin 25.6 pg (28.0-33.3); Mean Corpuscular Volume 80.5 fL (83.0-100.0); Red Blood Count 3.13 M/mcL (3.82-4.97); White Blood Count 8.2 K/mcL (4.3-11.1)
[2020-10-19 08:21] LABS: BUN/Creatinine Ratio 23 (6-26); Blood Urea Nitrogen 23 mg/dL (8-23); Carbon Dioxide 20 mEq/L (23-29); Chloride 109 mEq/L (98-107); Glucose 113 mg/dL (70-105); Osmolality,Calculated 290 (280-300); Potassium 3.7 mEq/L (3.5-5.1); Sodium 138 mEq/L (136-145); eGFR For African Americans > 60 (> 60); eGFR For Non-African Americans 53 (> 60)
[2020-10-19] MEDS ORDERED: 0.9 % Sodium Chloride 250 ML ONE (10:42)
[2020-10-19 11:12] LABS: Hematocrit 27.5 % (35.3-44.9); Hemoglobin 8.3 g/dL (11.5-15.4)
[2020-10-20 01:05] LABS: Hematocrit 26.8 % (35.3-44.9); Hemoglobin 8.1 g/dL (11.5-15.4); Mean Corpuscular HGB Conc 30.2 g/dL (31.6-35.5); Mean Corpuscular Hemoglobin 25.5 pg (28.0-33.3); Mean Corpuscular Volume 84.3 fL (83.0-100.0); Mean Platelet Volume 12.5 fL (9.4-12.4); Platelet Count 301 K/mcL (140-400); Red Blood Count 3.18 M/mcL (3.82-4.97); Red Cell Distribution Width 21.3 % (11.5-14.5); White Blood Count 9.6 K/mcL (4.3-11.1)
[2020-10-20 01:22] LABS: Calcium 8.1 mg/dL (8.6-10.3); Potassium 3.7 mEq/L (3.5-5.1)
[2020-10-20] MEDS: Pantoprazole 40 MG VIAL IVP SCH ×2 (05:53→17:46)
[2020-10-20] MEDS: Metoprolol XL (24 HR) Succ 25 MG TAB.ER.24H PO SCH (08:48)
[2020-10-21 02:00] LABS: Hematocrit 25.6 % (35.3-44.9); Hemoglobin 7.8 g/dL (11.5-15.4); Mean Corpuscular HGB Conc 30.5 g/dL (31.6-35.5); Mean Corpuscular Hemoglobin 25.3 pg (28.0-33.3); Mean Corpuscular Volume 83.1 fL (83.0-100.0); Mean Platelet Volume 12.1 fL (9.4-12.4); Platelet Count 288 K/mcL (140-400); Red Blood Count 3.08 M/mcL (3.82-4.97); Red Cell Distribution Width 21.3 % (11.5-14.5); White Blood Count 7.7 K/mcL (4.3-11.1)
[2020-10-21] MEDS: Pantoprazole 40 MG VIAL IVP SCH (06:30)
[2020-10-21 10:29] VITALS: PULSE 85
[2020-10-21] MEDS: Metoprolol XL (24 HR) Succ 25 MG TAB.ER.24H PO SCH (11:21)
[2020-10-21 15:28] VITALS: BP 107/71; TEMP 98.2; O2SAT 95
== END 2020-10-21 17:43 | disposition home or self-care (01) | DRG 378 ==
LOC: 3ANU 19:46 → EMEROOARM 19:46 → SUATTDRO 22:52 → 3ANU 23:27
PROVIDERS: ADMIT Student in an Organized Health Care Education/Training Program; ATTEND General Practice

== ENCOUNTER 2020-10-27 11:19 | Observation (INO) ==
[2020-10-27] MEDS ORDERED: Ringers Solution, Lactated 500 ML IVC SCH (12:00)
[2020-10-27] MEDS ORDERED: Tdap (Boostrix) Vaccine 0.5 ML SYRINGE IM ONE (12:10)
[2020-10-27 13:37] LABS: Basophils % 0.3 %; Eosinophils # 0.3 K/mcL (0.0-0.6); Hematocrit 25.9 % (35.3-44.9); Hemoglobin 7.6 g/dL (11.5-15.4); Immature Granulocytes % 0.4 % (0-4); Lymphocytes # 1.4 K/mcL (0.6-4.6); Lymphocytes % 13.6 %; Mean Corpuscular HGB Conc 29.3 g/dL (31.6-35.5); Mean Corpuscular Volume 81.7 fL (83.0-100.0); Mean Platelet Volume 12.1 fL (9.4-12.4); Monocytes # 0.7 K/mcL (0.0-1.3); Neutrophils # 7.8 K/mcL (1.6-8.9); Nucleated Red Blood Cells 0.5 /100 WBC (0); Platelet Count 298 K/mcL (140-400); Red Blood Count 3.17 M/mcL (3.82-4.97); Red Cell Distribution Width 21.2 % (11.5-14.5); Segmented Neutrophils % 75.7 %; White Blood Count 10.3 K/mcL (4.3-11.1)
[2020-10-27 13:57] LABS: Alanine Aminotransferase 10 Units/L (7-52); Albumin 3.1 g/dL (3.5-5.7); Albumin/Globulin Ratio 1.5 (1.1-2.2); Alkaline Phosphatase 65 Units/L (34-104); Aspartate Amino Transferase 15 Units/L (13-39); BUN/Creatinine Ratio 32 (6-26); Bilirubin,Direct 0.2 mg/dL (0.0-0.2); Bilirubin,Indirect 0.5 mg/dL (0.0-1.0); Bilirubin,Total 0.7 mg/dL (0.3-1.0); Blood Urea Nitrogen 32 mg/dL (8-23); Calcium 8.1 mg/dL (8.6-10.3); Carbon Dioxide 27 mEq/L (23-29); Chloride 106 mEq/L (98-107); Globulin 2.1 g/dL (2.4-3.5); Glucose 106 mg/dL (70-105); Osmolality,Calculated 303 (280-300); Potassium 2.6 mEq/L (3.5-5.1); Sodium 143 mEq/L (136-145); Total Protein 5.2 g/dL (6.4-8.9); eGFR For African Americans > 60 (> 60); eGFR For Non-African Americans 54 (> 60)
[2020-10-27 14:05] LABS: Troponin I 0.11 ng/mL (< 0.04)
[2020-10-27 14:17] LABS: Bacteria,Urine Few per hpf (None-Few); Bilirubin,Urine Negative (Negative); Blood,Urine Trace (Negative); Clarity,Urine Turbid (Clear); Color,Urine Yellow (Yellow); Glucose,Urine (UA) Normal (Normal); Ketones,Urine Negative (Negative); Leukocyte Esterase,Urine Large (Negative); Mucus,Urine Few per lpf (None-Few); Nitrite,Urine Negative (Negative); PH,Urine 5.5 pH Units (5.0-8.0); Protein,Urine Trace mg/dL (Neg-Trace); RBC,Urine 0-3 per hpf (0-3); Specific Gravity,Urine 1.018 (1.010-1.025); Squamous Epithelial Cell,Urine Few per hpf (None-Few); Urobilinogen,Urine Normal (Normal); WBC,Urine TNTC per hpf (0-3)
[2020-10-27] MEDS ORDERED: cefTRIAXone 1,000 MG in Water for inj. (sterile) 10 ML IVP ONE (14:45)
[2020-10-27] MEDS ORDERED: Furosemide 20 MG/2 ML VIAL IVP ONE (14:46)
[2020-10-27] MEDS ORDERED: Aspirin 81 MG TAB.CHEW PO STA (15:25)
[2020-10-27] MEDS ORDERED: Potassium Chloride 40 MEQ, Lidocaine 1% 2 ML in 0.9 % Sodium Chloride 500 ML IVPB ONE (15:46)
[2020-10-27 16:20] LABS: Magnesium 1.8 mg/dL (1.6-2.6)
[2020-10-27] MEDS ORDERED: Naloxone 0.4 MG/ML INJ IVP PRN (16:42)
[2020-10-27] MEDS ORDERED: Ondansetron 4 MG/2 ML VIAL IVP PRN (16:42)
[2020-10-27] MEDS ORDERED: MOM Conc 10 ML UD.LIQ PO PRN (16:42)
[2020-10-27] MEDS ORDERED: Perflutren Lipid Microsphere 1.3 ML in 0.9 % Sodium Chloride 8.7 ML IVP PRN (16:58)
[2020-10-27] MEDS ORDERED: 0.9 % Sodium Chloride 250 ML IVC SCH (17:00)
[2020-10-27] MEDS ORDERED: 0.9 % Sodium Chloride 250 ML ONE (23:46)
[2020-10-28 03:27] LABS: Basophils % 0.4 %; Eosinophils # 0.4 K/mcL (0.0-0.6); Eosinophils % 3.8 %; Hematocrit 25.5 % (35.3-44.9); Immature Granulocytes % 0.4 % (0-4); Lymphocytes # 1.3 K/mcL (0.6-4.6); Lymphocytes % 13.5 %; Mean Corpuscular HGB Conc 31.4 g/dL (31.6-35.5); Mean Corpuscular Volume 79.7 fL (83.0-100.0); Mean Platelet Volume 11.6 fL (9.4-12.4); Monocytes # 0.7 K/mcL (0.0-1.3); Monocytes % 7.1 %; Neutrophils # 7.4 K/mcL (1.6-8.9); Nucleated Red Blood Cells 0.4 /100 WBC (0); Platelet Count 276 K/mcL (140-400); Red Cell Distribution Width 20.1 % (11.5-14.5); Segmented Neutrophils % 74.8 %; White Blood Count 9.9 K/mcL (4.3-11.1)
[2020-10-28 03:36] LABS: INR 1.3; Prothrombin Time 14.6 Seconds (9.4-12.1)
[2020-10-28 03:46] LABS: BUN/Creatinine Ratio 31 (6-26); Blood Urea Nitrogen 30 mg/dL (8-23); Carbon Dioxide 23 mEq/L (23-29); Chloride 109 mEq/L (98-107); Creatine Kinase 50 Units/L (30-223); Glucose 94 mg/dL (70-105); Magnesium 1.7 mg/dL (1.6-2.6); Osmolality,Calculated 302 (280-300); Phosphorous 3.2 mg/dL (2.7-4.5); Potassium 3.2 mEq/L (3.5-5.1); Sodium 143 mEq/L (136-145); eGFR For African Americans > 60 (> 60); eGFR For Non-African Americans 56 (> 60)
[2020-10-28] MEDS: Acetaminophen 325 MG TABLET PO PRN (08:50)
[2020-10-28] MEDS ORDERED: lisinopriL 5 MG TABLET PO SCH (09:00)
[2020-10-28] MEDS ORDERED: Metoprolol XL (24 HR) Succ 25 MG TAB.ER.24H PO SCH (09:00)
[2020-10-28] MEDS ORDERED: Potassium Chloride Elixir 20 MEQ/15 ML UDC PO ONE (09:09)
[2020-10-28] MEDS: Furosemide 20 MG/2 ML VIAL IVP SCH (14:13)
[2020-10-28] MEDS: cefTRIAXone 1,000 MG in Water for inj. (sterile) 10 ML IVP SCH (14:13)
[2020-10-28] MEDS ORDERED: cefTRIAXone 1,000 MG in 0.9 % Sodium Chloride Mini Bag 100 ML IVPB SCH (15:00)
[2020-10-28] MEDS: Metoprolol XL (24 HR) Succ 25 MG TAB.ER.24H PO SCH (19:06)
[2020-10-29 06:10] LABS: Basophils % 0.5 %; Eosinophils # 0.3 K/mcL (0.0-0.6); Eosinophils % 3.3 %; Hematocrit 26.1 % (35.3-44.9); Hemoglobin 8.2 g/dL (11.5-15.4); Immature Granulocytes % 0.3 % (0-4); Lymphocytes # 1.3 K/mcL (0.6-4.6); Lymphocytes % 17.2 %; Mean Corpuscular HGB Conc 31.4 g/dL (31.6-35.5); Mean Corpuscular Hemoglobin 25.2 pg (28.0-33.3); Mean Corpuscular Volume 80.1 fL (83.0-100.0); Mean Platelet Volume 11.8 fL (9.4-12.4); Monocytes # 0.6 K/mcL (0.0-1.3); Monocytes % 7.9 %; Neutrophils # 5.5 K/mcL (1.6-8.9); Nucleated Red Blood Cells 0.5 /100 WBC (0); Platelet Count 291 K/mcL (140-400); Red Blood Count 3.26 M/mcL (3.82-4.97); Red Cell Distribution Width 19.9 % (11.5-14.5); Segmented Neutrophils % 70.8 %; White Blood Count 7.8 K/mcL (4.3-11.1)
[2020-10-29 06:26] LABS: BUN/Creatinine Ratio 28 (6-26); Blood Urea Nitrogen 25 mg/dL (8-23); Calcium 8.2 mg/dL (8.6-10.3); Carbon Dioxide 25 mEq/L (23-29); Chloride 107 mEq/L (98-107); Glucose 92 mg/dL (70-105); Osmolality,Calculated 294 (280-300); Sodium 140 mEq/L (136-145); eGFR For African Americans > 60 (> 60); eGFR For Non-African Americans > 60 (> 60)
[2020-10-29] MEDS: Metoprolol XL (24 HR) Succ 25 MG TAB.ER.24H PO SCH ×2 (08:16→19:50)
[2020-10-29] MEDS: lisinopriL 5 MG TABLET PO SCH (08:16)
[2020-10-29] MEDS: Furosemide 20 MG/2 ML VIAL IVP SCH (08:17)
[2020-10-29 09:13] LABS: Magnesium 1.8 mg/dL (1.6-2.6)
[2020-10-29] MEDS ORDERED: Magnesium Sulfate 1 GM/102 ML PIGGYBACK IVPB ONE (09:40)
[2020-10-29] MEDS ORDERED: Furosemide 20 MG/2 ML VIAL IVP ONE (09:42)
[2020-10-29] MEDS: Spironolactone 25 MG TABLET PO SCH (10:20)
[2020-10-29 11:55] LABS: BUN/Creatinine Ratio 25 (6-26); Blood Urea Nitrogen 23 mg/dL (8-23); Calcium 8.1 mg/dL (8.6-10.3); Carbon Dioxide 25 mEq/L (23-29); Chloride 107 mEq/L (98-107); Glucose 98 mg/dL (70-105); Osmolality,Calculated 294 (280-300); Potassium 3.2 mEq/L (3.5-5.1); Sodium 140 mEq/L (136-145); eGFR For African Americans > 60 (> 60); eGFR For Non-African Americans 58 (> 60)
[2020-10-29] MEDS: cefTRIAXone 1,000 MG in Water for inj. (sterile) 10 ML IVP SCH (14:09)
[2020-10-29] MEDS: Melatonin 3 MG TABLET PO PRN (22:53)
[2020-10-30 04:48] LABS: Basophils % 0.4 %; Eosinophils # 0.4 K/mcL (0.0-0.6); Eosinophils % 4.6 %; Hematocrit 26.5 % (35.3-44.9); Hemoglobin 8.3 g/dL (11.5-15.4); Immature Granulocytes % 0.4 % (0-4); Lymphocytes # 1.9 K/mcL (0.6-4.6); Mean Corpuscular HGB Conc 31.3 g/dL (31.6-35.5); Mean Corpuscular Hemoglobin 25.2 pg (28.0-33.3); Mean Corpuscular Volume 80.5 fL (83.0-100.0); Mean Platelet Volume 11.9 fL (9.4-12.4); Monocytes # 0.7 K/mcL (0.0-1.3); Neutrophils # 5.3 K/mcL (1.6-8.9); Nucleated Red Blood Cells 0.4 /100 WBC (0); Platelet Count 297 K/mcL (140-400); Red Blood Count 3.29 M/mcL (3.82-4.97); Red Cell Distribution Width 20.4 % (11.5-14.5); Segmented Neutrophils % 63.6 %; White Blood Count 8.4 K/mcL (4.3-11.1)
[2020-10-30 05:02] LABS: BUN/Creatinine Ratio 26 (6-26); Blood Urea Nitrogen 22 mg/dL (8-23); Calcium 8.2 mg/dL (8.6-10.3); Carbon Dioxide 24 mEq/L (23-29); Chloride 108 mEq/L (98-107); Glucose 107 mg/dL (70-105); Osmolality,Calculated 292 (280-300); Sodium 139 mEq/L (136-145); eGFR For African Americans > 60 (> 60); eGFR For Non-African Americans > 60 (> 60)
[2020-10-30] MEDS: Metoprolol XL (24 HR) Succ 25 MG TAB.ER.24H PO SCH (08:56)
[2020-10-30] MEDS: lisinopriL 5 MG TABLET PO SCH (08:56)
[2020-10-30] MEDS: Spironolactone 25 MG TABLET PO SCH (08:56)
[2020-10-30] MEDS: Furosemide 20 MG/2 ML VIAL IVP SCH (08:58)
[2020-10-30] MEDS ORDERED: Furosemide 20 MG/2 ML VIAL IVP ONE (11:18)
[2020-10-30] MEDS: cefTRIAXone 1,000 MG in Water for inj. (sterile) 10 ML IVP SCH (15:34)
[2020-10-30] MEDS ORDERED: *HR* Heparin 5,000 UNIT/ML VIAL SQ SCH (18:00)
[2020-10-30] MEDS: Metoprolol XL (24 HR) Succ 50 MG TAB.ER.24H PO SCH (19:56)
[2020-10-31 01:32] LABS: Basophils # 0.1 K/mcL (0.0-0.2); Basophils % 0.6 %; Eosinophils # 0.3 K/mcL (0.0-0.6); Eosinophils % 3.8 %; Hematocrit 30.5 % (35.3-44.9); Hemoglobin 9.1 g/dL (11.5-15.4); Immature Granulocytes % 0.2 % (0-4); Lymphocytes # 1.7 K/mcL (0.6-4.6); Lymphocytes % 19.1 %; Mean Corpuscular HGB Conc 29.8 g/dL (31.6-35.5); Mean Corpuscular Hemoglobin 24.4 pg (28.0-33.3); Mean Corpuscular Volume 81.8 fL (83.0-100.0); Mean Platelet Volume 11.4 fL (9.4-12.4); Monocytes # 0.7 K/mcL (0.0-1.3); Monocytes % 8.3 %; Nucleated Red Blood Cells 0.2 /100 WBC (0); Platelet Count 269 K/mcL (140-400); Red Blood Count 3.73 M/mcL (3.82-4.97); Red Cell Distribution Width 20.7 % (11.5-14.5); White Blood Count 8.8 K/mcL (4.3-11.1)
[2020-10-31 01:51] LABS: BUN/Creatinine Ratio 23 (6-26); Blood Urea Nitrogen 23 mg/dL (8-23); Calcium 8.5 mg/dL (8.6-10.3); Carbon Dioxide 27 mEq/L (23-29); Chloride 107 mEq/L (98-107); Glucose 127 mg/dL (70-105); Magnesium 2.1 mg/dL (1.6-2.6); Osmolality,Calculated 297 (280-300); Phosphorous 2.7 mg/dL (2.7-4.5); Potassium 4.1 mEq/L (3.5-5.1); Sodium 141 mEq/L (136-145); eGFR For African Americans > 60 (> 60); eGFR For Non-African Americans 54 (> 60)
[2020-10-31] MEDS: Furosemide 20 MG/2 ML VIAL IVP SCH (08:17)
[2020-10-31] MEDS: Metoprolol XL (24 HR) Succ 50 MG TAB.ER.24H PO SCH ×2 (08:17→20:01)
[2020-10-31] MEDS: Spironolactone 25 MG TABLET PO SCH (08:17)
[2020-10-31] MEDS: lisinopriL 5 MG TABLET PO SCH (08:17)
[2020-10-31] MEDS ORDERED: Hydrocortisone Rectal 2.5% CRM 28 GM TUBE RC PRN (08:47)
[2020-10-31 14:01] LABS: Hematocrit 28.6 % (35.3-44.9); Hemoglobin 8.6 g/dL (11.5-15.4)
[2020-10-31] MEDS: cefTRIAXone 1,000 MG in Water for inj. (sterile) 10 ML IVP SCH (15:25)
[2020-11-01] MEDS: Spironolactone 25 MG TABLET PO SCH (07:31)
[2020-11-01] MEDS: Furosemide 20 MG/2 ML VIAL IVP SCH (07:31)
[2020-11-01] MEDS: Metoprolol XL (24 HR) Succ 50 MG TAB.ER.24H PO SCH ×2 (07:31→20:36)
[2020-11-01] MEDS: lisinopriL 5 MG TABLET PO SCH (07:31)
[2020-11-01 08:53] LABS: Basophils % 0.5 %; Eosinophils # 0.5 K/mcL (0.0-0.6); Eosinophils % 5.7 %; Hematocrit 27.1 % (35.3-44.9); Hemoglobin 8.2 g/dL (11.5-15.4); Immature Granulocytes % 0.2 % (0-4); Lymphocytes # 1.7 K/mcL (0.6-4.6); Lymphocytes % 20.3 %; Mean Corpuscular HGB Conc 30.3 g/dL (31.6-35.5); Mean Corpuscular Hemoglobin 24.5 pg (28.0-33.3); Mean Corpuscular Volume 80.9 fL (83.0-100.0); Mean Platelet Volume 11.7 fL (9.4-12.4); Monocytes # 0.7 K/mcL (0.0-1.3); Monocytes % 7.8 %; Neutrophils # 5.6 K/mcL (1.6-8.9); Platelet Count 280 K/mcL (140-400); Red Blood Count 3.35 M/mcL (3.82-4.97); Red Cell Distribution Width 20.9 % (11.5-14.5); Segmented Neutrophils % 65.5 %; White Blood Count 8.5 K/mcL (4.3-11.1)
[2020-11-01 09:14] LABS: BUN/Creatinine Ratio 33 (6-26); Blood Urea Nitrogen 30 mg/dL (8-23); Calcium 8.5 mg/dL (8.6-10.3); Carbon Dioxide 26 mEq/L (23-29); Chloride 106 mEq/L (98-107); Glucose 102 mg/dL (70-105); Magnesium 2.2 mg/dL (1.6-2.6); Osmolality,Calculated 292 (280-300); Phosphorous 3.1 mg/dL (2.7-4.5); Potassium 4.1 mEq/L (3.5-5.1); Sodium 138 mEq/L (136-145); eGFR For African Americans > 60 (> 60); eGFR For Non-African Americans 58 (> 60)
[2020-11-01] MEDS: cefTRIAXone 1,000 MG in Water for inj. (sterile) 10 ML IVP SCH (15:48)
[2020-11-01] MEDS: Pantoprazole 40 MG VIAL IVP SCH (17:09)
[2020-11-01] MEDS: Melatonin 3 MG TABLET PO PRN (20:36)
[2020-11-02] MEDS: Pantoprazole 40 MG VIAL IVP SCH ×2 (05:10→16:46)
[2020-11-02 07:46] LABS: Basophils # 0.1 K/mcL (0.0-0.2); Basophils % 0.6 %; Eosinophils # 0.5 K/mcL (0.0-0.6); Eosinophils % 5.7 %; Hematocrit 27.2 % (35.3-44.9); Hemoglobin 8.2 g/dL (11.5-15.4); Immature Granulocytes % 0.4 % (0-4); Lymphocytes # 1.8 K/mcL (0.6-4.6); Lymphocytes % 21.9 %; Mean Corpuscular HGB Conc 30.1 g/dL (31.6-35.5); Mean Corpuscular Hemoglobin 24.6 pg (28.0-33.3); Mean Corpuscular Volume 81.4 fL (83.0-100.0); Mean Platelet Volume 11.8 fL (9.4-12.4); Monocytes # 0.6 K/mcL (0.0-1.3); Monocytes % 7.8 %; Neutrophils # 5.1 K/mcL (1.6-8.9); Platelet Count 274 K/mcL (140-400); Red Blood Count 3.34 M/mcL (3.82-4.97); Red Cell Distribution Width 21.2 % (11.5-14.5); Segmented Neutrophils % 63.6 %; White Blood Count 8.1 K/mcL (4.3-11.1)
[2020-11-02 08:05] LABS: BUN/Creatinine Ratio 31 (6-26); Blood Urea Nitrogen 29 mg/dL (8-23); Calcium 8.3 mg/dL (8.6-10.3); Carbon Dioxide 29 mEq/L (23-29); Chloride 106 mEq/L (98-107); Glucose 104 mg/dL (70-105); Magnesium 2.1 mg/dL (1.6-2.6); Osmolality,Calculated 296 (280-300); Phosphorous 3.6 mg/dL (2.7-4.5); Sodium 140 mEq/L (136-145); eGFR For African Americans > 60 (> 60); eGFR For Non-African Americans 57 (> 60)
[2020-11-02] MEDS: Spironolactone 25 MG TABLET PO SCH (10:04)
[2020-11-02] MEDS: Furosemide 20 MG TABLET PO SCH (10:04)
[2020-11-02] MEDS: lisinopriL 5 MG TABLET PO SCH (10:05)
[2020-11-02] MEDS: Metoprolol XL (24 HR) Succ 50 MG TAB.ER.24H PO SCH ×2 (10:05→20:05)
[2020-11-02] MEDS: cefTRIAXone 1,000 MG in Water for inj. (sterile) 10 ML IVP SCH (14:45)
[2020-11-02] MEDS: Melatonin 3 MG TABLET PO PRN (20:05)
[2020-11-03 03:34] LABS: White Blood Count 9.6 K/mcL (4.3-11.1)
[2020-11-03 03:35] LABS: Basophils # 0.1 K/mcL (0.0-0.2); Basophils % 0.5 %; Eosinophils # 0.5 K/mcL (0.0-0.6); Eosinophils % 4.8 %; Hematocrit 24.6 % (35.3-44.9); Hemoglobin 7.4 g/dL (11.5-15.4); Immature Granulocytes % 0.5 % (0-4); Lymphocytes % 20.8 %; Mean Corpuscular HGB Conc 30.1 g/dL (31.6-35.5); Mean Corpuscular Hemoglobin 24.2 pg (28.0-33.3); Mean Corpuscular Volume 80.4 fL (83.0-100.0); Mean Platelet Volume 12.1 fL (9.4-12.4); Monocytes # 0.7 K/mcL (0.0-1.3); Monocytes % 7.4 %; Neutrophils # 6.3 K/mcL (1.6-8.9); Platelet Count 249 K/mcL (140-400); Red Blood Count 3.06 M/mcL (3.82-4.97); Red Cell Distribution Width 20.8 % (11.5-14.5)
[2020-11-03 03:52] LABS: BUN/Creatinine Ratio 32 (6-26); Blood Urea Nitrogen 29 mg/dL (8-23); Calcium 8.2 mg/dL (8.6-10.3); Carbon Dioxide 28 mEq/L (23-29); Chloride 105 mEq/L (98-107); Glucose 99 mg/dL (70-105); Magnesium 2.1 mg/dL (1.6-2.6); Osmolality,Calculated 292 (280-300); Phosphorous 3.2 mg/dL (2.7-4.5); Potassium 4.1 mEq/L (3.5-5.1); Sodium 138 mEq/L (136-145); eGFR For African Americans > 60 (> 60); eGFR For Non-African Americans 58 (> 60)
[2020-11-03] MEDS: Pantoprazole 40 MG VIAL IVP SCH ×2 (05:27→16:11)
[2020-11-03] MEDS: Spironolactone 25 MG TABLET PO SCH (08:54)
[2020-11-03] MEDS: Furosemide 20 MG TABLET PO SCH (08:54)
[2020-11-03] MEDS: lisinopriL 5 MG TABLET PO SCH (08:54)
[2020-11-03] MEDS: Metoprolol XL (24 HR) Succ 50 MG TAB.ER.24H PO SCH ×2 (08:54→19:50)
[2020-11-03] MEDS: cefTRIAXone 1,000 MG in Water for inj. (sterile) 10 ML IVP SCH (16:10)
[2020-11-03] MEDS: Melatonin 3 MG TABLET PO PRN (19:49)
[2020-11-04] MEDS: Pantoprazole 40 MG VIAL IVP SCH ×2 (05:07→17:05)
[2020-11-04 05:49] LABS: Basophils # 0.1 K/mcL (0.0-0.2); Basophils % 0.7 %; Eosinophils # 0.4 K/mcL (0.0-0.6); Eosinophils % 5.1 %; Hematocrit 27.4 % (35.3-44.9); Hemoglobin 8.2 g/dL (11.5-15.4); Immature Granulocytes % 0.3 % (0-4); Lymphocytes # 1.5 K/mcL (0.6-4.6); Lymphocytes % 19.2 %; Mean Corpuscular HGB Conc 29.9 g/dL (31.6-35.5); Mean Corpuscular Hemoglobin 24.7 pg (28.0-33.3); Mean Corpuscular Volume 82.5 fL (83.0-100.0); Mean Platelet Volume 11.8 fL (9.4-12.4); Monocytes # 0.6 K/mcL (0.0-1.3); Monocytes % 8.3 %; Neutrophils # 5.1 K/mcL (1.6-8.9); Platelet Count 252 K/mcL (140-400); Red Blood Count 3.32 M/mcL (3.82-4.97); Red Cell Distribution Width 20.6 % (11.5-14.5); Segmented Neutrophils % 66.4 %; White Blood Count 7.7 K/mcL (4.3-11.1)
[2020-11-04 06:07] LABS: BUN/Creatinine Ratio 33 (6-26); Blood Urea Nitrogen 33 mg/dL (8-23); Calcium 8.8 mg/dL (8.6-10.3); Carbon Dioxide 30 mEq/L (23-29); Chloride 106 mEq/L (98-107); Glucose 117 mg/dL (70-105); Magnesium 2.2 mg/dL (1.6-2.6); Osmolality,Calculated 300 (280-300); Phosphorous 3.6 mg/dL (2.7-4.5); Potassium 4.3 mEq/L (3.5-5.1); Sodium 141 mEq/L (136-145); eGFR For African Americans > 60 (> 60); eGFR For Non-African Americans 52 (> 60)
[2020-11-04] MEDS: lisinopriL 5 MG TABLET PO SCH (09:08)
[2020-11-04] MEDS: Spironolactone 25 MG TABLET PO SCH (09:21)
[2020-11-04] MEDS: Metoprolol XL (24 HR) Succ 50 MG TAB.ER.24H PO SCH ×2 (09:21→20:11)
[2020-11-04] MEDS: Furosemide 20 MG TABLET PO SCH (09:22)
[2020-11-04] MEDS: Melatonin 3 MG TABLET PO PRN (20:11)
[2020-11-05 03:29] LABS: Basophils # 0.1 K/mcL (0.0-0.2); Basophils % 0.9 %; Eosinophils # 0.4 K/mcL (0.0-0.6); Eosinophils % 4.8 %; Hematocrit 26.5 % (35.3-44.9); Hemoglobin 7.8 g/dL (11.5-15.4); Immature Granulocytes % 0.3 % (0-4); Lymphocytes # 1.9 K/mcL (0.6-4.6); Lymphocytes % 20.8 %; Mean Corpuscular HGB Conc 29.4 g/dL (31.6-35.5); Mean Corpuscular Hemoglobin 24.9 pg (28.0-33.3); Mean Corpuscular Volume 84.7 fL (83.0-100.0); Mean Platelet Volume 11.7 fL (9.4-12.4); Monocytes # 0.9 K/mcL (0.0-1.3); Monocytes % 9.6 %; Neutrophils # 5.7 K/mcL (1.6-8.9); Nucleated Red Blood Cells 0.2 /100 WBC (0); Platelet Count 210 K/mcL (140-400); Red Blood Count 3.13 M/mcL (3.82-4.97); Red Cell Distribution Width 21.6 % (11.5-14.5); Segmented Neutrophils % 63.6 %
[2020-11-05 03:47] LABS: Calcium 8.4 mg/dL (8.6-10.3); Magnesium 2.1 mg/dL (1.6-2.6); Phosphorous 3.5 mg/dL (2.7-4.5); Potassium 4.3 mEq/L (3.5-5.1)
[2020-11-05] MEDS: Pantoprazole 40 MG VIAL IVP SCH ×2 (05:57→15:51)
[2020-11-05] MEDS: lisinopriL 5 MG TABLET PO SCH (09:46)
[2020-11-05] MEDS: Spironolactone 25 MG TABLET PO SCH (09:50)
[2020-11-05] MEDS: Metoprolol XL (24 HR) Succ 50 MG TAB.ER.24H PO SCH ×2 (09:50→21:00)
[2020-11-05] MEDS: Furosemide 20 MG TABLET PO SCH (12:57)
[2020-11-05] MEDS: Melatonin 3 MG TABLET PO PRN (21:00)
[2020-11-05] MEDS: Acetaminophen 325 MG TABLET PO PRN (21:02)
[2020-11-06 03:15] LABS: Basophils # 0.1 K/mcL (0.0-0.2); Basophils % 0.8 %; Eosinophils # 0.4 K/mcL (0.0-0.6); Eosinophils % 5.1 %; Hematocrit 21.3 % (35.3-44.9); Hemoglobin 6.3 g/dL (11.5-15.4); Immature Granulocytes % 0.5 % (0-4); Lymphocytes # 1.8 K/mcL (0.6-4.6); Lymphocytes % 23.8 %; Mean Corpuscular HGB Conc 29.6 g/dL (31.6-35.5); Mean Corpuscular Hemoglobin 24.1 pg (28.0-33.3); Mean Corpuscular Volume 81.6 fL (83.0-100.0); Mean Platelet Volume 11.7 fL (9.4-12.4); Monocytes # 0.7 K/mcL (0.0-1.3); Monocytes % 8.9 %; Neutrophils # 4.5 K/mcL (1.6-8.9); Platelet Count 220 K/mcL (140-400); Red Blood Count 2.61 M/mcL (3.82-4.97); Red Cell Distribution Width 20.8 % (11.5-14.5); Segmented Neutrophils % 60.9 %; White Blood Count 7.4 K/mcL (4.3-11.1)
[2020-11-06 03:36] LABS: BUN/Creatinine Ratio 35 (6-26); Blood Urea Nitrogen 30 mg/dL (8-23); Calcium 8.2 mg/dL (8.6-10.3); Carbon Dioxide 27 mEq/L (23-29); Chloride 107 mEq/L (98-107); Glucose 93 mg/dL (70-105); Osmolality,Calculated 294 (280-300); Potassium 4.4 mEq/L (3.5-5.1); Sodium 139 mEq/L (136-145); eGFR For African Americans > 60 (> 60); eGFR For Non-African Americans > 60 (> 60)
[2020-11-06] MEDS: Pantoprazole 40 MG VIAL IVP SCH ×2 (06:11→18:45)
[2020-11-06] MEDS: Spironolactone 12.5 MG TABLET PO SCH (09:31)
[2020-11-06] MEDS: Furosemide 20 MG TABLET PO SCH (09:31)
[2020-11-06] MEDS: lisinopriL 5 MG TABLET PO SCH (09:32)
[2020-11-06] MEDS: Metoprolol XL (24 HR) Succ 50 MG TAB.ER.24H PO SCH ×2 (09:32→21:25)
[2020-11-06] MEDS ORDERED: 0.9 % Sodium Chloride 250 ML ONE (12:21)
[2020-11-07 03:09] LABS: Basophils # 0.1 K/mcL (0.0-0.2); Basophils % 0.7 %; Eosinophils # 0.4 K/mcL (0.0-0.6); Eosinophils % 4.3 %; Hematocrit 28.1 % (35.3-44.9); Hemoglobin 8.6 g/dL (11.5-15.4); Immature Granulocytes % 0.3 % (0-4); Lymphocytes # 1.6 K/mcL (0.6-4.6); Lymphocytes % 18.5 %; Mean Corpuscular HGB Conc 30.6 g/dL (31.6-35.5); Mean Corpuscular Hemoglobin 25.3 pg (28.0-33.3); Mean Corpuscular Volume 82.6 fL (83.0-100.0); Mean Platelet Volume 11.6 fL (9.4-12.4); Monocytes # 0.7 K/mcL (0.0-1.3); Monocytes % 7.6 %; Platelet Count 219 K/mcL (140-400); Red Cell Distribution Width 19.1 % (11.5-14.5); Segmented Neutrophils % 68.6 %; White Blood Count 8.7 K/mcL (4.3-11.1)
[2020-11-07 03:36] LABS: BUN/Creatinine Ratio 27 (6-26); Blood Urea Nitrogen 21 mg/dL (8-23); Calcium 8.4 mg/dL (8.6-10.3); Carbon Dioxide 27 mEq/L (23-29); Chloride 107 mEq/L (98-107); Glucose 96 mg/dL (70-105); Osmolality,Calculated 291 (280-300); Potassium 4.2 mEq/L (3.5-5.1); Sodium 139 mEq/L (136-145); eGFR For African Americans > 60 (> 60); eGFR For Non-African Americans > 60 (> 60)
[2020-11-07] MEDS: Pantoprazole 40 MG VIAL IVP SCH (05:08)
[2020-11-07 07:25] VITALS: BP 113/67
[2020-11-07] MEDS: Metoprolol XL (24 HR) Succ 50 MG TAB.ER.24H PO SCH (09:07)
[2020-11-07] MEDS: Furosemide 20 MG TABLET PO SCH (09:07)
[2020-11-07] MEDS: lisinopriL 5 MG TABLET PO SCH (09:07)
[2020-11-07] MEDS: Spironolactone 12.5 MG TABLET PO SCH (09:07)
[2020-11-07 11:05] LABS: Adenovirus Not Detected (Not Detect); Bordetella Pertussis Not Detected (Not Detect); Chlamydophila pneumoniae Not Detected (Not Detect); Coronavirus 229E Not Detected (Not Detect); Coronavirus HKU1 Not Detected (Not Detect); Coronavirus NL63 Not Detected (Not Detect); Coronavirus OC43 Not Detected (Not Detect); Human Metapneumovirus Not Detected (Not Detect); Human Rhinovirus/Enterovirus Not Detected (Not Detect); Influenza A Subtype 2009 H1 Not Detected (Not Detect); Influenza B Not Detected (Not Detect); Mycoplasma pneumoniae Not Detected (Not Detect); Parainfluenza Virus 1 Not Detected (Not Detect); Parainfluenza Virus 2 Not Detected (Not Detect); Parainfluenza Virus 3 Not Detected (Not Detect); Parainfluenza Virus 4 Not Detected (Not Detect); Respiratory Syncytial Virus Not Detected (Not Detect); SARS-CoV-2 Not Detected (Not Detect)
[2020-11-07 12:23] VITALS: PULSE 74; TEMP 97.8; O2SAT 96
== END 2020-11-07 14:13 ==
LOC: EMEROOARM 11:19 → 2ANU 11:19
PROVIDERS: ADMIT Internal Medicine; ATTEND Internal Medicine